=== PATIENT | male | born 1985 | race African-American/Black ===

== ENCOUNTER 2021-07-15 06:59 | Observation (INO) ==
--- NOTE | 2021-07-15 07:17 | Emergency Department Note ---
History of Present Illness General Chief complaint: Dental/Oral Stated complaint: TOOTH PAIN Time Seen by Provider: 07/15/21 07:05 History of Present Illness Maximum Pain Intensity: 8 This is a 35-year-old male that presents to the emergency department via private vehicle with complaints of "dental pain". Patient notes pain to the right side of his face. He notes the pain is originating from the molars of the right posterior superior and inferior dentition. 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 No known trauma or injury recently. The patient states that he was here a little over a month ago and received antibiotics and pain medication. He is now out of these. He has been utilizing [id number] pain medication. Specifically he arrives with bottles of acetaminophen and indicates that he has been taking between 12 and 13 tablets every day for the past 2 weeks. These appear to be the extra strength 500 mg tablets. He also notes he is taking a nighttime medication but this also contains acetaminophen. That is included in the count listed above. The patient denies any nausea or vomiting. No abdominal pain. Patient states that he has attempted to follow-up with dentistry however his appointment continues to be moved. He notes that he has an appointment on the of this month with [facility]. He states that he is here today noting worsening discomfort. He states that he was crying this morning secondary to the pain. Current pain 8/10. Patient denies any drainage from the teeth or trouble breathing/swa llowing. He denies any facial swelling. He does note now that on the superior posterior gumline on the medial aspect of the molar he notes a "black speck". Home Medications Medication Instructions Recorded Confirmed Type No Known Home Medications 07/15/21 07/15/21 History Allergies Allergy/AdvReac Type Severity Reaction Status Date / Time No Known Allergies Allergy Unverified 07/15/21 07:46 Past Med/Surg History Medical History No significant past medical history Surgical History No significant past surgical history Social History Smoking Status: Never smoker Preferred Language: Qatari marital status: Single current occupational status: employed Feels Safe at Home: Yes Review of Systems A total of 10 systems reviewed and were otherwise negative Physical Exam Vital Signs Vital Signs - 24 hr 07/15/21 07:02 07/15/21 08:10 07/15/21 09:17 Temperature 36.9 C Temperature Source Temporal Artery Scan Pulse Rate 68 Pulse Rate [Right Finger] 52 L 46 L Pulse Rhythm [Right Finger] Regular Regular Pulse Strength [Right Finger] Normal Normal Respiratory Rate 18 19 16 Respiratory Effort / Characteristics Non-Labored Respiratory Depth Normal Normal Respiratory Pattern Regular Blood Pressure 157/97 H Blood Pressure [Right Arm] 155/79 H 120/88 Blood Pressure Mean 117 Blood Pressure Mean [Right Arm] 104 98 Blood Pressure Position [Right Arm] Lying Lying Pulse Oximetry 99 97 98 Oxygen Delivery Method Room Air Room Air Room Air Sepsis Recent Fever Within 48 Hours No Sepsis New/Unexplained Change in Mental Status No Sepsis Action Taken by Nursing No Action Required 07/15/21 11:00 07/15/21 12:06 Temperature Temperature Source Pulse Rate Pulse Rate [Right Finger] 47 L 54 L Pulse Rhythm [Right Finger] Regular Pulse Strength [Right Finger] Normal Respiratory Rate 21 20 Respiratory Effort / Characteristics Respiratory Depth Respiratory Pattern Blood Pressure Blood Pressure [Right Arm] 150/106 H Blood Pressure Mean Blood Pressure Mean [Right Arm] 120 Blood Pressure Position [Right Arm] Lying Pulse Oximetry 98 97 Oxygen Delivery Method Room Air Room Air Sepsis Recent Fever Within 48 Hours Sepsis New/Unexplained Change in Mental Status Sepsis Action Taken by Nursing VITAL SIGNS - Vital signs and nursing notes were reviewed. Stable and afebrile. GENERAL -35-year-old male appearing his stated age who is in no acute distress. Communicates well with provider and answers questions appropriately. SKIN - Without rashes. No meningeal or petechial rash. No facial edema or e rythema. HEAD - NC/AT. EYES - Sclera anicteric. EARS - No deformities of external structures noted on gross examination bilaterally. No pain elicited with palpation of the tragus bilaterally. External auditory canals without discharge or otorrhea. Tympanic membranes pearly salcedo without retraction or bulging. No fluid or purulent material visualized behind the TM. Handle of malleus, umbo, cone of light, pars tensa/flaccid all easily visualized. NOSE - Midline and without cyanosis. No epistaxis or purulent drainage noted. Septum midline without deviation or septal hematoma noted. MOUTH/OROPHARYNX - Without perioral cyanosis. Buccal mucosa pink and moist and without leukoplakia. Tongue midline with equal elevation of palate bilaterally. No tonsillar hypertrophy, erythema, or exudates noted. Patient's right posterior and superior molar region with overall poor repair with several partial teeth with evidence of chronic change. No facial edema. No crepitus. No fluctuance. No evidence of Taye's angina. No drooling, stridor, trismus, wheezing or tripoding. Normal phonation. NECK - Neck with FROM. No nuchal rigidity. LUNGS - Chest wall symmetric without accessory muscle use, intercostals retractions, or central cyanosis. Normal vesicular breath sounds CTA B/L. No wheezes, rales, or rhonchi appreciated. CARDIAC - RRR with S1/S2. No murmur, rubs, or gallops appreciated. ABDOMEN - Abdominal contour normal without pulsations or visible masses. BS normoactive all four quadrants. No tenderness, palpable masses, hepatosplenomegaly, or ascites noted. EXTREMITIES - No clubbing or peripheral cyanosis. +5/5 strength noted in UE/LE bilaterally. NEUROLOGIC - Cranial nerves II through XII grossly intact. Sensory intact to light touch throughout. PSYCH - A&Ox3 and cooperates fully with examiner. Pt is very pleasant and interacts well with examiner. Course Administered Medications Chlorhexidine Gluconate (Chlorhexidine Gluconate 0.12% 480 Ml) 15 ml MT Q6 JEREMY Stop: 08/14/21 17:59 Last Admin: 07/15/21 17:57 Dose: 15 ml Documented by: [id number] Metronidazole (Flagyl) 500 mg in 100 mls @ 100 mls/hr IV Q8H JEREMY Stop: 07/25/21 12:59 Last Infusion: 07/15/21 15:49 Dose: 0 mls/hr Documented by: [id number] Admin: 07/15/21 14:17 Dose: 100 mls/hr Documented by: [id number] Clindamycin Phosphate (Cleocin/D5w) 600 mg in 50 mls @ 100 mls/hr IV Q8H JEREMY Stop: 07/25/21 17:59 Last Infusion: 07/15/21 18:36 Dose: 0 mls/hr Documented by: [id number] Admin: 07/15/21 17:53 Dose: 100 mls/hr Documented by: [id number] Ketorolac Tromethamine (Ketorolac Tromethamine 15 Mg/Ml Vial) 15 mg IV Q6H PRN PRN Reason: Pain Stop: 07/20/21 14:53 Last Admin: 07/15/21 15:49 Dose: 15 mg Documented by: [id number] Discontinued Medications Clindamycin Phosphate (Cleocin/D5w) 600 mg in 50 mls @ 100 mls/hr IV NOW ONE Stop: 07/15/21 10:38 Last Infusion: 07/15/21 14:42 Dose: 0 mls/hr Documented by: [id number] Admin: 07/15/21 10:26 Dose: 100 mls/hr Documented by: [id number] Acetylcysteine 14,030 mg/ (Dextrose) 270.15 mls @ 200 mls/hr IV ONCE ONE Stop: 07/15/21 14:28 Last Infusion: 07/15/21 17:03 Dose: 0 mls/hr Documented by: [id number] Admin: 07/15/21 15:37 Dose: 200 mls/hr Documented by: [id number] Acetylcysteine 4,680 mg/ (Dextrose) 523.4 mls @ 125 mls/hr IV ONCE ONE Stop: 07/15/21 18:21 Last Admin: 07/15/21 17:02 Dose: 125 mls/hr Documented by: [id number] Ioversol (Optiray 320 100ml) 95 ml IV ONCE ONE Stop: 07/15/21 09:11 Last Admin: 07/15/21 08:58 Dose: 95 ml Documented by: [id number] Morphine Sulfate (Morphine Sulfate 4 Mg/Ml 1 Ml Carp\\Vial) 4 mg IV NOW STA Stop: 07/15/21 07:59 Last Admin: 07/15/21 08:09 Dose: 4 mg Documented by: [id number] Morphine Sulfate (Morphine Sulfate 4 Mg/Ml 1 Ml Carp\\Vial) 4 mg IV NOW STA Stop: 07/15/21 08:28 Last Admin: 07/15/21 08:55 Dose: 4 mg Documented by: [id number] Morphine Sulfate (Morphine Sulfate 4 Mg/Ml 1 Ml Carp\\Vial) 4 mg IV NOW STA Stop: 07/15/21 11:16 Last Admin: 07/15/21 11:28 Dose: 4 mg Documented by: [id number] Morphine Sulfate (Morphine Sulfate 2 Mg/Ml Carp) 2 mg IV NOW STA Stop: 07/15/21 14:36 Last Admin: 07/15/21 14:42 Dose: 2 mg Documented by: [id number] Ondansetron HCl (Ondansetron Inj 2 Mg/Ml 2 Ml Vial) 4 mg IV NOW STA Stop: 07/15/21 07:59 Last Admin: 07/15/21 08:09 Dose: 4 mg Documented by: [id number] Ondansetron HCl (Ondansetron Inj 2 Mg/Ml 2 Ml Vial) 4 mg IV NOW STA Stop: 07/15/21 09:09 Last Admin: 07/15/21 09:14 Dose: 4 mg Documented by: [id number] Medical Decision Making Laboratory Data Result diagrams: 07/15/21 07:25 07/15/21 07:25 Lab Results 07/15/21 07/15/21 07/15/21 Range/Units 07:25 07:25 07:25 WBC 6.19 (4.8-10.8) K/uL RBC 4.77 (4.7-6.1) M/uL Hgb 13.6 L (14.0-18.0) g/dL Hct 41.0 L (42-52) % MCV 86.0 (80-100) fL MCH 28.5 (25-34) pg MCHC 33.2 (32-36) g/dL RDW Std Deviation 48.5 H (36.4-46.3) fL RDW Coeff of Kandace 15.4 H (11.5-14.5) % Plt Count 281 (130-400) K/uL MPV 10.0 (7.4-10.4) fL Immature Gran % (Auto) 0.2 % Neut % (Auto) 51.4 % Lymph % (Auto) 39.3 % [place] % (Auto) 7.9 % Eos % (Auto) 1.0 % Baso % (Auto) 0.2 % Neut # (Auto) 3.19 (1.4-6.5) K/uL Lymph # (Auto) 2.43 (1.2-3.4) K/uL [place] # (Auto) 0.49 (0.11-0.59) K/uL Eos # (Auto) 0.06 (0-0.5) K/uL Baso # (Auto) 0.01 (0-0.2) K/uL Immature Gran # (Auto) 0.01 (0.00-0.02) K/uL PT 13.5 H (9.0-12.0) Seconds INR 1.3 H (0.9-1.1) APTT 27.1 (21.0-31.0) Seconds PTT Ratio 1.0 Sodium 139 (136-145) mmol/L Potassium 3.8 (3.5-5.1) mmol/L Chloride 106 (98-107) mmol/L Carbon Dioxide 24 (21-32) mmol/L Anion Gap 9 (3-11) BUN 14 (6-23) mg/dl Creatinine 0.92 (0.6-1.4) mg/dl Est Cr Clr Drug Dosing 131.8 ml/min Est GFR ( Amer) 123.6 ml/min Est GFR (Non-Af Amer) 106.6 ml/min BUN/Creatinine Ratio 15.2 (10-20) Glucose 87 (70-99(Fasting)) mg/dl Calcium 10.1 (8.5-10.1) mg/dl Total Bilirubin 0.6 (0.2-1.0) mg/dl AST 25 (13-39) U/L ALT 25 (7-52) U/L Alkaline Phosphatase 66 (34-104) U/L Total Protein 7.7 (6.0-8.3) gm/dl Albumin 4.8 (3.4-5.0) gm/dl Globulin 2.9 (2.5-4.0) gm/dl Albumin/Globulin Ratio 1.7 (0.9-2) Salicylates (3.0-30) mg/dl Acetaminophen (10-30) ug/ml SARS-CoV-2, RNA, NAAT (NEGATIVE) 07/15/21 07/15/21 Range/Units 07:25 11:33 WBC (4.8-10.8) K/uL RBC (4.7-6.1) M/uL Hgb (14.0-18.0) g/dL Hct (42-52) % MCV (80-100) fL MCH (25-34) pg MCHC (32-36) g/dL RDW Std Deviation (36.4-46.3) fL RDW Coeff of Kandace (11.5-14.5) % Plt Count (130-400) K/uL MPV (7.4-10.4) fL Immature Gran % (Auto) % Neut % (Auto) % Lymph % (Auto) % [place] % (Auto) % Eos % (Auto) % Baso % (Auto) % Neut # (Auto) (1.4-6.5) K/uL Lymph # (Auto) (1.2-3.4) K/uL [place] # (Auto) (0.11-0.59) K/uL Eos # (Auto) (0-0.5) K/uL Baso # (Auto) (0-0.2) K/uL Immature Gran # (Auto) (0.00-0.02) K/uL PT (9.0-12.0) Seconds INR (0.9-1.1) APTT (21.0-31.0) Seconds PTT Ratio Sodium (136-145) mmol/L Potassium (3.5-5.1) mmol/L Chloride (98-107) mmol/L Carbon Dioxide (21-32) mmol/L Anion Gap (3-11) BUN (6-23) mg/dl Creatinine (0.6-1.4) mg/dl Est Cr Clr Drug Dosing ml/min Est GFR ( Amer) ml/min Est GFR (Non-Af Amer) ml/min BUN/Creatinine Ratio (10-20) Glucose (70-99(Fasting)) mg/dl Calcium (8.5-10.1) mg/dl Total Bilirubin (0.2-1.0) mg/dl AST (13-39) U/L ALT (7-52) U/L Alkaline Phosphatase (34-104) U/L Total Protein (6.0-8.3) gm/dl Albumin (3.4-5.0) gm/dl Globulin (2.5-4.0) gm/dl Albumin/Globulin Ratio (0.9-2) Salicylates < 3.0 L (3.0-30) mg/dl Acetaminophen 16 (10-30) ug/ml SARS-CoV-2, RNA, NAAT NEGATIVE (NEGATIVE) Imaging Data Radiologist's Impression: Face CT 07/15/21 08:20 CT SCAN OF THE FACIAL BONES WITH IV CONTRAST CLINICAL HISTORY: Right-sided facial/dental pain. COMPARISON STUDY: No priors. TECHNIQUE: High-resolution CT scan of the facial bones is performed following the IV administration of 95 cc of Optiray 320. Images are reviewed in the axial, sagittal, and coronal planes. IV contrast was administered without complication. A dose lowering technique was utilized adhering to the principles of ALARA. CT DOSE: 660.10 mGy.cm FINDINGS: The skeletal structures are well mineralized. There is no evidence of facial bone fracture. The bony orbits are intact and the orbital contents are within normal limits. The zygomatic arches, nasal bones, and pterygoid plates are preserved. The maxilla and mandible are intact. There are no layering blood products within the paranasal sinuses. There is trace mucosal thickening within the right maxillary antrum. The remaining paranasal sinuses are clear. The mastoid air cells are well pneumatized. The visualized calvarium and upper cerv ical spine are maintained. Partially imaged brain parenchyma is within normal limits. There are numerous dental caries identified. There are large periapical lucencies involving left mandibular molars and premolars with overlying cortical breakthrough. A small periapical lucencies are also seen involving right maxillary molars and a right mandibular premolar. No abscess is identified. There are nonspecific foci of deep soft tissue gas within the right inspector aluminum boat and parapharyngeal spaces (employer relations representative foci are seen on axial images #245 and #305). There is mild surrounding inflammation. The pharyngeal airway is patent. The carotid arteries and jugular veins are patent. There is slightly asymmetric dermal thickening and infiltration in the left upper neck as compared the right. IMPRESSION: 1. There is no evidence of facial bone fracture. 2. Periodontal disease as above with numerous dental caries and periapical lucencies. Follow-up with dentistry is recommended. 3. No fluid collection is seen to suggest abscess. 4. There are nonspecific foci of deep soft tissue gas within the right inspector aluminum boat and parapharyngeal spaces. There is nonspecific, with only mild inflammation. Although atypical, this could represent foci of intravenous gas. A gas-forming infection is not excluded and clinical correlation will be essential. 5. The airway is patent. 6. There is asymmetric dermal thickening and mild soft tissue induration within the soft tissues of the ventral left upper neck. Correlate clinically for e vidence of cellulitis. ACT 112: Negative or not required by law. Electronically signed by: Mathew Escoto M.D. 07/15/2021 9:26 AM MDM Narrative Patient was seen and evaluated as above in room B10. Review was performed of nursing notes and vital signs. I did review pertinent previous visits and patient history. After obtaining a thorough history and physical examination the above work up was performed. Patient presents to us today for evaluation of right-sided dental pain. He clinically appears well and nontoxic. On initial arrival he respectfully declined pain medication. He does note that he has been taking acetaminophen for the pain. It appears that he has been taking more than the recommended daily dosage but he was unaware of this. Options of care were discussed with the patient. IV access was established. Labs were drawn. Given the patient's potential for taking too much acetaminophen by history I did feel that blood work was reasonable. The initially declined pain medication. I was then notified by the nurse that the patient was in severe pain. I went to evaluate him. He was essentially laying back in the bed rolling [id number] noting he was in severe pain. I then ordered him IV morphine, IV Zofran pending work-up here today. Patient has required several doses of IV morphine here in the emergency department to manage his pain. He also had additional nausea and was given additional IV Zofran. CT imaging was obtained of the face with results as above. Patient does have periductal disease which clinically does correlate. There is no fluid collection to suggest abscess. There is comment of nonspecific foci of deep soft tissue gas within the right inspector aluminum boat and parapharyngeal spaces. Only mild inflammation is noted. CT report indicates that it would be atypical but could represent foci of intravenous gas. A gas-forming infection is not excluded. The patient does not clinically appear toxic. He clinically appears well but in pain. I will also note that the left side of the neck does not appear to be cellulitic clinically. I did discuss the presentation and findings with the on- call oral maxillofacial surgeon, Dr. Trevizo. We reviewed the case. At this time we will proceed with hospitalist admission for intravenous antibiotics and repeat CT scan of the area in 24 hours to reevaluate the foci of intravenous gas. If the patient would clinically worsen or if this region would worsen by CT then the patient would likely require transfer to tertiary care center. I will note that at the present time the patient does not appear toxic at all. He does appear to be in pain from the teeth. I discussed options with the patient. I discussed this with the hospitalist. At this time we will proceed with medical admission to the hospital for further evaluation and management. Patient did receive IV clindamycin here. Please refer to further documentation regarding his stay. In addition to his work-up here I did further evaluate for potential acetaminophen overdose. This was secondary to the patient's subjective amounts of acetaminophen he has been ingesting over the past 2 weeks. Labs reveal no leukocytosis. Minor anemia. Minor elevation of INR 1.3. LFTs are normal. Acetaminophen level 16. Salicylate undetectable. COVID testing negative. GCS: 15 In the evaluation and treatment of this patient, the following differential diagnoses were considered: Periapical Abscess, Osteonecrosis of the Jaw, Dental Fracture, Dental Caries, Atye's Angina, Vincent's Angina, Facial Cellulitis, Ludwigs angina, Lemierre's syndrome, among others Impression & Plan Dental caries, Odontalgia, Abnormal CT scan Discharge Plan Visit Data Chief Complaint: Dental/Oral Stated Complaint: TOOTH PAIN ED Provider: Uriah Prescott ED Midlevel Provider: Perez Jolly Discharge Problem: Dental caries, Odontalgia, Abnormal CT scan Patient Disposition: Admitted As Inpatient Condition: Good Discharge Instructions Interventions: ED Discharge Assessment Last Done: 07/15/21 15:56
[2021-07-15 07:53] LABS: Acetaminophen 16 ug/ml (10-30); INR 1.3 (0.9-1.1); Partial Thromboplastin Time 27.1 Seconds (21.0-31.0); Prothrombin Time 13.5 Seconds (9.0-12.0); Salicylate < 3.0 mg/dl (3.0-30)
[2021-07-15 07:54] LABS: Albumin Globulin Ratio 1.7 (0.9-2); Albumin Level 4.8 gm/dl (3.4-5.0); BUN Creatinine Ratio 15.2 (10-20); Bilirubin,Total 0.6 mg/dl (0.2-1.0); Calcium 10.1 mg/dl (8.5-10.1); Creatinine Clr Calc Pharmacy 131.8 ml/min; Est GFR (African American) 123.6 ml/min; Est GFR (Non-African American) 106.6 ml/min; Globulin 2.9 gm/dl (2.5-4.0); Potassium 3.8 mmol/L (3.5-5.1); Total Protein 7.7 gm/dl (6.0-8.3)
[2021-07-15] MEDS ORDERED: ONDANSETRON INJ 2 MG/ML 2 ML VIAL IV STA ×2 (07:58→09:08)
[2021-07-15] MEDS ORDERED: MoRPHine SULFATE 4 MG/ML 1 ML CARP\\VIAL IV STA ×3 (07:58→11:15)
[2021-07-15 07:59] LABS: Basophils # (auto) 0.01 K/uL (0-0.2); Basophils % (auto) 0.2 %; Eosinophils # (auto) 0.06 K/uL (0-0.5); Hemoglobin 13.6 g/dL (14.0-18.0); Immature Granulocytes # (auto) 0.01 K/uL (0.00-0.02); Immature Granulocytes % (auto) 0.2 %; Lymphocytes # (auto) 2.43 K/uL (1.2-3.4); Lymphocytes % (auto) 39.3 %; Mean Corpuscular Hemoglobin 28.5 pg (25-34); Mean Corpuscular Hgb Conc 33.2 g/dL (32-36); Monocytes # (auto) 0.49 K/uL (0.11-0.59); Monocytes % (auto) 7.9 %; Neutrophils # (auto) 3.19 K/uL (1.4-6.5); Neutrophils % (auto) 51.4 %; Platelet Count 281 K/uL (130-400); RDW Coefficient of Variation 15.4 % (11.5-14.5); RDW Standard Deviation 48.5 fL (36.4-46.3); Red Blood Count 4.77 M/uL (4.7-6.1); White Blood Count 6.19 K/uL (4.8-10.8)
[2021-07-15] MEDS ORDERED: OPTIRAY 320 100ml IV ONE (09:10)
--- NOTE | 2021-07-15 09:27 | CT Scan Report ---
CT SCAN OF THE FACIAL BONES WITH IV CONTRAST CLINICAL HISTORY: Right-sided facial/dental pain. COMPARISON STUDY: No priors. TECHNIQUE: High-resolution CT scan of the facial bones is performed following the IV administration of 95 cc of Optiray 320. Images are reviewed in the axial, sagittal, and coronal planes. IV contrast was administered without complication. A dose lowering technique was utilized adhering to the princi ples of JERRI. CT DOSE: 660.10 mGy.cm FINDINGS: The skeletal structures are well mineralized. There is no evidence of facial bone fracture. The bony orbits are intact and the orbital contents are within normal limits. The zygomatic arches, nasal bones, and pterygoid plates are preserved. The maxilla and mandible are intact. There are no la yering blood products within the paranasal sinuses. There is trace mucosal thickening within the righ t maxillary antrum. The remaining paranasal sinuses are clear. The mastoid air cells are well pneumat ized. The visualized calvarium and upper cervical spine are maintained. Partially imaged brain parenc hyma is within normal limits. There are numerous dental caries identified. There are large periapical lucencies involving left mandibular molars and premolars with overlying cortical breakthrough. A sma ll periapical lucencies are also seen involving right maxillary molars and a right mandibular premola r. No abscess is identified. There are nonspecific foci of deep soft tissue gas within the right mast icator and parapharyngeal spaces (rental representative foci are seen on axial images #245 and #305). There is mild surrounding inflammation. The pharyngeal airway is patent. The carotid arteries and jugular v eins are patent. There is slightly asymmetric dermal thickening and infiltration in the left upper ne ck as compared the right. IMPRESSION: 1. There is no evidence of facial bone fracture. 2. Periodontal disease as above with numerous dental caries and periapical lucencies. Follow-up with dentistry is recommended. 3. No fluid collection is seen to suggest abscess. 4. There are nonspecific foci of deep soft tissue gas within the right mainframe programmer analyst and parapharyngeal spaces. There is nonspecific, with only mild inflammation. Although atypical, this could represent fo ci of intravenous gas. A gas-forming infection is not excluded and clinical correlation will be essen tial. 5. The airway is patent. 6. There is asymmetric dermal thickening and mild soft tissue induration within the soft tissues of t he ventral left upper neck. Correlate clinically for evidence of cellulitis. ACT 112: Negative or not required by law. Electronically signed by: Mathew Escoto M.D. 07/15/2021 9:26 AM
[2021-07-15] MEDS ORDERED: CLINDAMYCIN/D5W 600 MG/50 ML BAG IV ONE (10:09)
[2021-07-15] MEDS ORDERED: ACETYLCYSTEINE IV ONE ×3 (13:07→18:10)
[2021-07-15] MEDS ORDERED: DEXTROSE 5% IV ONE ×3 (13:07→18:10)
[2021-07-15] MEDS ORDERED: AcetylCYSTEINE IV 21 HR REGIMEN (>40KG) IV STA (13:07)
--- NOTE | 2021-07-15 13:10 | History & Physical Report ---
Date of Service July 15, 2021 Assessment & Plan (1) Periodontal disease: Plan: As above- will provider Peridex mouth rinse q6 hours at least - pain control with Toradol, Oxy IR, and Morphine for severe pain if needed - Re- image in the morning- evaluate GAS formation vs. Intravenous air - ABX coverage with Clindamycin IV and Flagyl IV - no current evidence of sepsis or airways compromise- (2) Odontalgia: Plan: As above (3) Abnormal CT scan: Plan: As above There are nonspecific foci of deep soft tissue gas within the right fashion design professor and parapharyngeal spaces. There is nonspecific, with only mild inflammation. Although atypical, this could represent foci of intravenous gas. A gas-forming infection is not excluded and clinical correlation will be essential. Periodontal disease as above with numerous dental caries and periapical lucencies. Follow-up with dentistry is recommended. Dr. Parker consulted- appreciate assistance (4) Tylenol overdose: Plan: His consumption and amount are at his weight max - EMD provider consulted poison control- recommends NAC therapy - follow- recheck INR ~ 16 hours from now - INR in am LFTs in AM History of Present Illness Primary Care Provider: JILL PCP 35 YOM with no reported medical history: patient comes to the EMD today for continued complaints of right sided facial pain secondary reported right sided tooth pain. Patient appears to have been dealing with left sided fractured tooth back in May, and reports that for the last 3 weeks his right upper and lower back teeth have been hurting him, resulting in pain that goes up to his buddhism and then downtrends to the bottom of his jaw. He reports that this pain is causing him to miss work because it continues to throb. He reports taking be tween 12-13 tablets of Tylenol every day without relief. He did have Tylenol level sent and was\ (16) and his LFTs are normal- but with INR of 1.3. Poison control was consulted for his dose amount and level by the EMD. Recommendation was for NAC therapy- will be initiated. In the EMD the patient had CT scan of his face completed. This revealed peridental disease as well as a foci of deep soft tissue gas within the right fashion design professor and parapharyngeal spaces. There is nonspecific, with only mild inflammation. Although atypical, this could represent foci of intravenous gas. A gas-forming infection is not excluded and clinical correlation will be essential. OMFS was consulted by EMD and reviewed the imaging- current recommendation is observation overnight with antibiotic coverage and re-image in the morning for evaluation of GAS. Patient was given Clindamycin in the EMD. Patient will be observed overnight. Will add on Flagyl for anaerobic coverage with the above. If no change in the above GAS- patient will be seen by Dr. Parker in the office for removal of his teeth. Do have surgical coverage if needed while in house. COVID test on admission is: NEGATIVE Allergies Allergy/AdvReac Type Severity Reaction Status Date / Time No Known Allergies Allergy Unverified 07/15/21 07:46 Home Medications Medication Instructions Recorded Confirmed Type chlorhexidine gluconate 0.12 % 15 ml MT Q6 #118 ml 07/16/21 Rx mouthwash Past Med/Surg History Medical History No significant past medical history Surgical History No significant past surgical history Social History Smoking Status: Never smoker Preferred Language: Malagasy marital status: Single current occupational status: employed Feels Safe at Home: Yes Review of Systems Review of Systems: REVIEW OF SYSTEMS: Constitutional: No fever, sweats or chills Eyes: No diplopia, no worsening or blurred vision ENT: (+) tooth and face pain Respiratory: No cough, sputum, dyspnea at rest or on exertion Cardiovascular: No chest pain, tightness or palpitations Abdomen: No pain, nausea, vomiting, diarrhea or constipation Musculoskeletal: No joint pain, calf pain, swelling Neurologic: No weakness, numbness/tingling, or balance problems Psychiatric: No anxiety or depression Skin: No rash or itch Physical Exam Physical Exam: PHYSICAL EXAM: General: awake, alert, no apparent distress Head: Normocephalic, atraumatic ENT: PERRL, EOMI, no pharyngeal exudate, mucous membranes moist- bilateral fractured and missing teeth at back molars, right upper #2-3 erythema and black spotting, left lower ~#19 with also pain at the jaw-line, right lower ~30 normal hearing, no trouble swallowing and no airway compromise. Tenderness to palpation right lower jaw and submandibular, no sinus pain and no pain along the TMJ. Left lower jaw pain with palpation Neuro: AAO x 3, speech clear and appropriate, strength intact bilaterally 5/5, sensation intact and equal all extremities and dermatomes, no pronator drift Chest: equal rise and fall of the chest, no accessory muscle use, no heaves or thrills, Clear to auscultation, on room air, Cardiac: Regular rate and rhythm, telemetry reviewed, skin warm dry, cap refill <3 seconds, peripheral pulses +2 no JVD, no murmur, no JVD, no edema GI: NABS x 4 quadrants, soft, nontender to palpation, no rebound, guarding or tenderness : Spontaneously voiding, no pain, no CVA tenderness, Extremities: Normal inspection, no peripheral edema or erythema, calfs nontender to palpation Psych: Normal mood and affect Skin: no rash or erythema Results & Data Results & Data ([place]) Vital Signs (Past 12 Hours) Vital Signs Temp Pulse Pulse Resp BP BP Pulse Ox 07/15/21 11:00 47 L 21 150/106 H 98 07/15/21 09:17 46 L 16 120/88 98 07/15/21 08:10 52 L 19 155/79 H 97 07/15/21 07:02 36.9 C 68 18 157/97 H 99 Laboratory Results Abnormal lab results 07/15/21 07/15/21 07/15/21 Range/Units 07:25 07:25 07:25 Hgb 13.6 L (14.0-18.0) g/dL Hct 41.0 L (42-52) % RDW Std Deviation 48.5 H (36.4-46.3) fL RDW Coeff of Kandace 15.4 H (11.5-14.5) % PT 13.5 H (9.0-12.0) Seconds INR 1.3 H (0.9-1.1) Salicylates < 3.0 L (3.0-30) mg/dl Diagnostic Findings Face CT 07/15/21 08:20 CT SCAN OF THE FACIAL BONES WITH IV CONTRAST CLINICAL HISTORY: Right-sided facial/dental pain. COMPARISON STUDY: No priors. TECHNIQUE: High-resolution CT scan of the facial bones is performed following the IV administration of 95 cc of Optiray 320. Images are reviewed in the axial, sagittal, and coronal planes. IV contrast was administered without complication. A dose lowering technique was utilized adhering to the principles of ALARA. CT DOSE: 660.10 mGy.cm FINDINGS: The skeletal structures are well mineralized. There is no evidence of facial bone fracture. The bony orbits are intact and the orbital contents are within normal limits. The zygomatic arches, nasal bones, and pterygoid plates are preserved. The maxilla and mandible are intact. There are no layering blood products within the paranasal sinuses. There is trace mucosal thickening within the right maxillary antrum. The remaining paranasal sinuses are clear. The mastoid air cells are well pneumatized. The visualized calvarium and upper cervical spine are maintained. Partially imaged brain parenchyma is within normal limits. There are numerous dental caries identified. There are large periapical lucencies involving left mandibular molars and premolars with overlying cortical breakthrough. A small periapical lucencies are also seen involving right maxillary molars and a right mandibular premolar. No abscess is identified. There are nonspecific foci of deep soft tissue gas within the right fashion design professor and parapharyngeal spaces (key account representative foci are seen on axial images #245 and #305). There is mild surrounding inflammation. The pharyngeal airway is patent. The carotid arteries and jugular veins are patent. There is slightly asymmetric dermal thickening and infiltration in the left upper neck as compared the right. IMPRESSION: 1. There is no evidence of facial bone fracture. 2. Periodontal disease as above with numerous dental caries and periapical lucencies. Follow-up with dentistry is recommended. 3. No fluid collection is seen to suggest abscess. 4. There are nonspecific foci of deep soft tissue gas within the right fashion design professor and parapharyngeal spaces. There is nonspecific, with only mild inflammation. Although atypical, this could represent foci of intravenous gas. A gas-forming infection is not excluded and clinical correlation will be essential. 5. The airway is patent. 6. There is asymmetric dermal thickening and mild soft tissue induration within the soft tissues of the ventral left upper neck. Correlate clinically for evidence of cellulitis. ACT 112: Negative or not required by law. Electronically signed by: Mathew Escoto M.D. 07/15/2021 9:26 AM Medications Administered Home Medications No Known Home Medications 07/15/21 [History Confirmed 07/15/21] Active Medications Acetaminophen (Acetaminophen 325 Mg Tab) 650 mg PO Q8 JEREMY Stop: 08/14/21 13:59 Metronidazole (Flagyl) 500 mg in 100 mls @ 100 mls/hr IV Q8H JEREMY Stop: 07/25/21 12:59 Discontinued Medications Clindamycin Phosphate (Cleocin/D5w) 600 mg in 50 mls @ 100 mls/hr IV NOW ONE Stop: 07/15/21 10:38 Last Admin: 07/15/21 10:26 Dose: 100 mls/hr Documented by: [id number] Ioversol (Optiray 320 100ml) 95 ml IV ONCE ONE Stop: 07/15/21 09:11 Last Admin: 07/15/21 08:58 Dose: 95 ml Documented by: [id number] Morphine Sulfate (Morphine Sulfate 4 Mg/Ml 1 Ml Carp\Vial) 4 mg IV NOW STA Stop: 07/15/21 07:59 Last Admin: 07/15/21 08:09 Dose: 4 mg Documented by: [id number] Morphine Sulfate (Morphine Sulfate 4 Mg/Ml 1 Ml Carp\Vial) 4 mg IV NOW STA Stop: 07/15/21 08:28 Last Admin: 07/15/21 08:55 Dose: 4 mg Documented by: [id number] Morphine Sulfate (Morphine Sulfate 4 Mg/Ml 1 Ml Carp\Vial) 4 mg IV NOW STA Stop: 07/15/21 11:16 Last Admin: 07/15/21 11:28 Dose: 4 mg Documented by: [id number] Ondansetron HCl (Ondansetron Inj 2 Mg/Ml 2 Ml Vial) 4 mg IV NOW STA Stop: 07/15/21 07:59 Last Admin: 07/15/21 08:09 Dose: 4 mg Documented by: [id number] Ondansetron HCl (Ondansetron Inj 2 Mg/Ml 2 Ml Vial) 4 mg IV NOW STA Stop: 07/15/21 09:09 Last Admin: 07/15/21 09:14 Dose: 4 mg Documented by: [id number] ECG Additional Comments: EKG: Pending on admission Code Status & VTE Plan Code Status CODE: FULL VTE: SCDS, ambulation Supervising Physician Co-Signing Physician Notes Patient seen and examined at bedside. Obtained a physical examination and history during face to face encounter. I discussed plan of care with PANCHO Glass I reviewed above note and agree with it. Patient will be admitted with periodontal disease. Patient will be admitted on antibiotics, re-eval in AM. Consult ENT. PG Care Time/CCT Total # of Minutes Spent Total Time Spent with Patient: Total time spent is greater than 50% in coordination of care (as documented) at patient's floor/unit and/or counseling patient: Coding Level of Care Code INT OBSERVATION CARE 70M LVL 3 Diagnoses Periodontal disease K05.[address] scan R93.89 Tylenol overdose T39.1X1A
[2021-07-15] MEDS ORDERED: ACETAMINOPHEN 325 MG TAB PO SCH (14:00)
[2021-07-15] MEDS: metroNIDAZOLE 500 MG/100 ML BAG IV SCH ×2 (14:17→20:26)
[2021-07-15] MEDS ORDERED: MoRPHine SULFATE 2 MG/ML CARP IV STA (14:35)
[2021-07-15] MEDS ORDERED: oxyCODONE HCL IR 5 MG TAB (IMMEDIATE RELEASE) PO PRN (14:54)
[2021-07-15] MEDS ORDERED: MoRPHine SULFATE 2 MG/ML CARP IV PRN (14:54)
[2021-07-15] MEDS: KETOROLAC TROMETHAMINE 15 MG/ML VIAL IV PRN ×2 (15:49→21:43)
[2021-07-15] MEDS: CLINDAMYCIN/D5W 600 MG/50 ML BAG IV SCH (17:53)
[2021-07-15] MEDS: CHLORHEXIDINE GLUCONATE 0.12% 480 ML MT SCH (17:57)
[2021-07-16] MEDS: CHLORHEXIDINE GLUCONATE 0.12% 480 ML MT SCH ×3 (01:01→12:57)
[2021-07-16] MEDS: CLINDAMYCIN/D5W 600 MG/50 ML BAG IV SCH ×2 (01:01→09:30)
[2021-07-16] MEDS: KETOROLAC TROMETHAMINE 15 MG/ML VIAL IV PRN ×2 (03:46→10:05)
[2021-07-16] MEDS ORDERED: OPTIRAY 320 100ml IV ONE (06:02)
[2021-07-16] MEDS: metroNIDAZOLE 500 MG/100 ML BAG IV SCH ×2 (06:07→12:57)
--- NOTE | 2021-07-16 07:45 | Hospitalist Progress Note ---
Date of Service July 16, 2021 Assessment & Plan (1) Periodontal disease: Plan: Admitted with RIGHT sided facial pain, multiple dental caries. Recent cracked tooth on the left in May CT on admission with peridentaldisease as well as a foci of deep soft tissue gas within the right plastic roller and parapharyngeal spaces. There is nonspecific, with only mild inflammation. Although atypical, this could represent foci of intravenous gas. A gas-forming infection is not excluded and clinical correlation will be essential. 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 There is nonspecific, with only mild inflammation. Although atypical, this could represent foci of intravenous gas. A gas-forming infection is not excluded and clinical correlation will be essential. Periodontal disease as above with numerous dental caries and periapical lucencies. Follow-up with dentistry is recommended. Dr. Parker consulted- appreciate assistance (4) Tylenol overdose: Plan: His consumption and amount are at his weight max - EMD provider consulted poison control- recommends NAC therapy - follow- recheck INR ~ 16 hours from now - INR in am LFTs in AM Admission and Anticipated Discharge Date Admission Date: July 15, 2021 Subjective ongoing pain x 2 weeks (works overnight at [employer]), worse bottom R jaw, occassional pain top R. Prior issues L jaw/cracked teeth but does have multiple cracked teeth in all four areas. Non smoker/no chewing tobacco. Using tylenol at home, no ibuprofen. Discussed alternating in future/max tylenol. Morphine not as effective as toradol. Will order 1x diladid but cannot increase the toradol for now. Waiting call back from Dr Trevizo as gas resolved on repeat office. Patient has been sticking to soups/liquids due to pain w/ chewing. He is hungry. Discussed keeping NPO for now until we get word from Dr Trevizo. He would prefer we do while he is here but did discuss dental usually outpatient but will see if Dr Trevizo able to perform. Results & Data Results & Data ([facility]) Vital Signs (Past 12 Hours) Vital Signs Temp Pulse Resp BP Pulse Ox 07/16/21 07:31 37.1 C 50 L 16 150/75 H 99 07/15/21 23:03 36.8 C 62 18 128/[address] 07/15/21 08:20 CT SCAN OF THE FACIAL BONES WITH IV CONTRAST CLINICAL HISTORY: Right-sided facial/dental pain. COMPARISON STUDY: No priors. TECHNIQUE: High-resolution CT scan of the facial bones is performed following the IV administration of 95 cc of Optiray 320. Images are reviewed in the axial, sagittal, and coronal planes. IV contrast was administered without complication. A dose lowering technique was utilized adhering to the principles of ALARA. CT DOSE: 660.10 mGy.cm FINDINGS: The skeletal structures are well mineralized. There is no evidence of facial bone fracture. The bony orbits are intact and the orbital contents are within normal limits. The zygomatic arches, nasal bones, and pterygoid plates are preserved. The maxilla and mandible are intact. There are no layering blood products within the paranasal sinuses. There is trace mucosal thickening within the right maxillary antrum. The remaining paranasal sinuses are clear. The mastoid air cells are well pneumatized. The visualized calvarium and upper cervical spine are maintained. Partially imaged brain parenchyma is within normal limits. There are numerous dental caries identified. There are large periapical lucencies involving left mandibular molars and premolars with overlying cortical breakthrough. A small periapical lucencies are also seen involving right maxillary molars and a right mandibular premolar. No abscess is identified. There are nonspecific foci of deep soft tissue gas within the right plastic roller and parapharyngeal spaces (guest service representative foci are seen on axial images #245 and #305). There is mild surrounding inflammation. The pharyngeal airway is patent. The carotid arteries and jugular veins are patent. There is slightly asymmetric dermal thickening and infiltration in the left upper neck as compared the right. IMPRESSION: 1. There is no evidence of facial bone fracture. 2. Periodontal disease as above with numerous dental caries and periapical lucencies. Follow-up with dentistry is recommended. 3. No fluid collection is seen to suggest abscess. 4. There are nonspecific foci of deep soft tissue gas within the right plastic roller and parapharyngeal spaces. There is nonspecific, with only mild inflammation. Although atypical, this could represent foci of intravenous gas. A gas-forming infection is not excluded and clinical correlation will be essential. 5. The airway is patent. 6. There is asymmetric dermal thickening and mild soft tissue induration within the soft tissues of the ventral left upper neck. Correlate clinically for evidence of cellulitis. ACT 112: Negative or not required by law. Electronically signed by: Mathew Escoto M.D. 07/15/2021 9:26 AM PG Care Time/CCT Total # of Minutes Spent Total Time Spent with Patient: Total time spent is greater than 50% in coordination of care (as documented) at patient's floor/unit and/or counseling patient: Coding Diagnoses Periodontal disease K05.[address] scan R93.89 Tylenol overdose T39.1X1A
--- NOTE | 2021-07-16 08:26 | CT Scan Report ---
CT facial bones w con HISTORY: Right-sided facial/dental pain. re-evaluation of deep soft tissue gas TECHNIQUE: Multiaxial CT images of the facial bones were performed following the intravenous administ ration of 94 cc of Optiray 320. Sagittal and coronal reformations were also obtained for COMPARISON STUDY: CT facial bones 07/15/2021. FINDINGS: The soft tissue gas seen within the deep right catering cook space has resolved in the interva l. Scattered periapical lucencies and multiple dental caries are again noted within the teeth. No fra ctures within the visualized osseous structures. Minimal mucosal thickening within the maxillary sinu ses. No fluid levels within the paranasal sinuses. The mastoid air cells are clear. No abscess or mas s identified. A few prominent submandibular and submental lymph nodes, unchanged. Dominant submental lymph node measures 12 x 8 mm. The pterygopalatine fossa and paratracheal fat spaces are maintained. The orbits and visualized brain parenchyma are unremarkable. IMPRESSION: 1. Interval resolution of the soft tissue gas within the right catering cook/pharyngeal spaces. 2. No abscess or mass identified. 3. Periodontal disease again noted. 4. A few prominent submental and submandibular lymph nodes. These may be reactive. ACT 112: Negative or not required by law. Electronically signed by: Ozzy Gordillo M.D. 07/16/2021 8:24 AM
[2021-07-16 09:40] LABS: Basophils # (auto) 0.02 K/uL (0-0.2); Basophils % (auto) 0.4 %; Eosinophils # (auto) 0.07 K/uL (0-0.5); Eosinophils % (auto) 1.6 %; Hematocrit (blood only) 39.2 % (42-52); Hemoglobin 13.2 g/dL (14.0-18.0); Immature Granulocytes # (auto) 0.01 K/uL (0.00-0.02); Immature Granulocytes % (auto) 0.2 %; Lymphocytes # (auto) 2.08 K/uL (1.2-3.4); Lymphocytes % (auto) 46.1 %; Mean Corpuscular Hemoglobin 28.1 pg (25-34); Mean Corpuscular Hgb Conc 33.7 g/dL (32-36); Mean Corpuscular Volume 83.6 fL (80-100); Mean Platelet Volume 9.8 fL (7.4-10.4); Monocytes # (auto) 0.34 K/uL (0.11-0.59); Monocytes % (auto) 7.5 %; Neutrophils # (auto) 1.99 K/uL (1.4-6.5); Neutrophils % (auto) 44.2 %; Platelet Count 244 K/uL (130-400); RDW Standard Deviation 46.1 fL (36.4-46.3); Red Blood Count 4.69 M/uL (4.7-6.1); White Blood Count 4.51 K/uL (4.8-10.8)
[2021-07-16 09:57] LABS: BUN Creatinine Ratio 12.5 (10-20); Calcium 9.3 mg/dl (8.5-10.1); Creatinine Clr Calc Pharmacy 168.4 ml/min; Est GFR (African American) 139.1 ml/min; Potassium 3.6 mmol/L (3.5-5.1)
[2021-07-16 09:59] LABS: Bilirubin Direct 0.1 mg/dl (0-0.2); Bilirubin,Total 0.7 mg/dl (0.2-1.0); Total Protein 6.6 gm/dl (6.0-8.3)
[2021-07-16 10:06] LABS: INR 1.1 (0.9-1.1); Prothrombin Time 12.1 Seconds (9.0-12.0)
[2021-07-16] MEDS ORDERED: HYDROmorphone INJ 0.5 MG/0.5 ML SYR IV STA (11:10)
[2021-07-16] MEDS ORDERED: SODIUM CHLORIDE 0.9% 500 ML IV SCH (11:15)
[2021-07-16] MEDS ORDERED: HYDROmorphone INJ 0.5 MG/0.5 ML SYR IV PRN (12:05)
--- NOTE | 2021-07-16 14:45 | Discharge Summary ---
Date of Service July 16, 2021 Admission HPI Per Admitting Provider 35 YOM with no reported medical history: patient comes to the EMD today for continued complaints of right sided facial pain secondary reported right sided tooth pain. Patient appears to have been dealing with left sided fractured tooth back in May, and reports that for the last 3 weeks his right upper and lower back teeth have been hurting him, resulting in pain that goes up to his yarsanism and then downtrends to the bottom of his jaw. He reports that this pain is causing him to miss work because it continues to throb. He reports taking between 12-13 tablets of Tylenol every day without relief. He did have Tylenol level sent and was\ (16) and his LFTs are normal- but with INR of 1.3. Poison control was consulted for his dose amount and level by the EMD. Recommendation was for NAC therapy- will be initiated. In the EMD the patient had CT scan of his face completed. This revealed peridental disease as well as a foci of deep soft tissue gas within the right ruling technician and parapharyngeal spaces. There is nonspecific, with only mild inflammation. Although atypical, this could represent foci of intravenous gas. A gas-forming infection is not excluded and clinical correlation will be essential. OMFS was consulted by EMD and reviewed the imaging- current recommendation is observation overnight with antibiotic coverage and re-image in the morning for evaluation of GAS. Patient was given Clindamycin in the EMD. Patient will be observed overnight. Will add on Flagyl for anaerobic coverage with the above. If no change in the above GAS- patient will be seen by Dr. Parker in the office for removal of his teeth. Do have surgical coverage if needed while in house. COVID test on admission is: NEGATIVE Admission Exam Per Admitting Provider PHYSICAL EXAM: General: awake, alert, no apparent distress Head: Normocephalic, atraumatic ENT: PERRL, EOMI, no pharyngeal exudate, mucous membranes moist- bilateral fractured and missing teeth at back molars, right upper #2-3 erythema and black spotting, left lower ~#19 with also pain at the jaw-line, right lower ~30 normal hearing, no trouble swallowing and no airway compromise. Tenderness to palpation right lower jaw and submandibular, no sinus pain and no pain along the TMJ. Left lower jaw pain with palpation Neuro: AAO x 3, speech clear and appropriate, strength intact bilaterally 5/5, sensation intact and equal all extremities and dermatomes, no pronator drift Chest: equal rise and fall of the chest, no accessory muscle use, no heaves or thrills, Clear to auscultation, on room air, Cardiac: Regular rate and rhythm, telemetry reviewed, skin warm dry, cap refill <3 seconds, peripheral pulses +2 no JVD, no murmur, no JVD, no edema GI: NABS x 4 quadrants, soft, nontender to palpation, no rebound, guarding or tenderness : Spontaneously voiding, no pain, no CVA tenderness, Extremities: Normal inspection, no peripheral edema or erythema, calfs nontender to palpation Psych: Normal mood and affect Skin: no rash or erythema Principal Diagnosis Dental Infection Discharge Exam General: WD/WN male sitting up in bed, NAD HEENT: head normocephalic, atraumatic, trachea midline without deviation, pupils equal and reactive multiple dental abnormalities -- bilateral fractured molars, upper and lower, tender to palpation primarily along right medial jaw no erythema of chest/lymphangitic streaking cervical lymphadenopathy Resp: CTAB, no w/c/r, on room air CV: RRR, no m/r/g, no edema/calf tenderness GI:+BS, soft, nontender no calix MSK/Neuro: moves all extremities, answering questions appropriately, no focal deficit Psych: AOx3, pleasant and cooperative Discharge Data Allergies Allergy/AdvReac Type Severity Reaction Status Date / Time No Known Allergies Allergy Unverified 07/15/21 07:46 Consultations 07/15/21 11:42 Consult Oromaxillofacial Surgery Routine 07/15/21 12:01 ED Decision to Admit Stat Ordered Studies Face CT 07/15/21 08:20 CT SCAN OF THE FACIAL BONES WITH IV CONTRAST CLINICAL HISTORY: Right-sided facial/dental pain. COMPARISON STUDY: No priors. TECHNIQUE: High-resolution CT scan of the facial bones is performed following the IV administration of 95 cc of Optiray 320. Images are reviewed in the axial, sagittal, and coronal planes. IV contrast was administered without complication. A dose lowering technique was utilized adhering to the principles of ALARA. CT DOSE: 660.10 mGy.cm FINDINGS: The skeletal structures are well mineralized. There is no evidence of facial bone fracture. The bony orbits are intact and the orbital contents are within normal limits. The zygomatic arches, nasal bones, and pterygoid plates are preserved. The maxilla and mandible are intact. There are no layering blood products within the paranasal sinuses. There is trace mucosal thickening within the right maxillary antrum. The remaining paranasal sinuses are clear. The mastoid air cells are well pneumatized. The visualized calvarium and upper cervical spine are maintained. Partially imaged brain parenchyma is within normal limits. There are numerous dental caries identified. There are large periapical lucencies involving left mandibular molars and premolars with overlying cortical breakthrough. A small periapical lucencies are also seen involving right maxillary molars and a right mandibular premolar. No abscess is identified. There are nonspecific foci of deep soft tissue gas within the right ruling technician and parapharyngeal spaces (sales representative foci are seen on axial images #245 and #305). There is mild surrounding inflammation. The pharyngeal airway is patent. The carotid arteries and jugular veins are patent. There is slightly asymmetric dermal thickening and infiltration in the left upper neck as compared the right. IMPRESSION: 1. There is no evidence of facial bone fracture. 2. Periodontal disease as above with numerous dental caries and periapical lucencies. Follow-up with dentistry is recommended. 3. No fluid collection is seen to suggest abscess. 4. There are nonspecific foci of deep soft tissue gas within the right ruling technician and parapharyngeal spaces. There is nonspecific, with only mild inflammation. Although atypical, this could represent foci of intravenous gas. A gas-forming infection is not excluded and clinical correlation will be essential. 5. The airway is patent. 6. There is asymmetric dermal thickening and mild soft tissue induration within the soft tissues of the ventral left upper neck. Correlate clinically for evidence of cellulitis. ACT 112: Negative or not required by law. Electronically signed by: Mathew Escoto M.D. 07/15/2021 9:[address] 07/16/21 06:00 CT facial bones w con HISTORY: Right-sided facial/dental pain. re-evaluation of deep soft tissue gas TECHNIQUE: Multiaxial CT images of the facial bones were performed following the intravenous administration of 94 cc of Optiray 320. Sagittal and coronal reformations were also obtained for COMPARISON STUDY: CT facial bones 07/15/2021. FINDINGS: The soft tissue gas seen within the deep right ruling technician space has resolved in the interval. Scattered periapical lucencies and multiple dental caries are again noted within the teeth. No fractures within the visualized osseous structures. Minimal mucosal thickening within the maxillary sinuses. No fluid levels within the paranasal sinuses. The mastoid air cells are clear. No abscess or mass identified. A few prominent submandibular and submental lymph nodes, unchanged. Dominant submental lymph node measures 12 x 8 mm. The pterygopalatine fossa and paratracheal fat spaces are maintained. The orbits and visualized brain parenchyma are unremarkable. IMPRESSION: 1. Interval resolution of the soft tissue gas within the right ruling technician/pharyngeal spaces. 2. No abscess or mass identified. 3. Periodontal disease again noted. 4. A few prominent submental and submandibular lymph nodes. These may be reactive. ACT 112: Negative or not required by law. Electronically signed by: Ozzy Gordillo M.D. 07/16/2021 8:24 AM Hospital Course (1) Periodontal disease: Admitted with RIGHT sided facial pain, multiple dental caries. Recent cracked tooth on the left in May CT on admission with peridentaldisease as well as a foci of deep soft tissue gas within the right ruling technician and parapharyngeal spaces. There is nonspecific, with only mild inflammation. Although atypical, this could represent foci of intravenous gas. A gas-forming infection is not excluded and clinical correlation will be essential. Clinda in ER, added Flagyl on admission Repeat CT in morning to eval gas formation vs intravenous air Discussed with Dr Trevizo, reviewed imaging --> No need for urgent intervention and will have patient in office for dental procedure/extractions on Monday. Educated patient to be NPO after midnight Monday Clindamycin PO continued at discharge, more than sufficient for anaerobic coverage Peridex mouth rinse q6 hours -- continued at discharge, rx sent Pain control Toradol sent (reported best effect with this IV compared to oxycodone) given overuse rec avoiding for now, but did discuss appropriate dosing and ibuprofen alternating in the future and NOT EXCEED max dosing Tylenol 3,000mg in 24 hour period or 2400mg for ibuprofen Got NAC while inpatient, cleared by poison control no further dosing needed Tolerated diet -- to continued dental soft/as tolerated (2) Odontalgia: As above (3) Abnormal CT scan: As above There are nonspecific foci of deep soft tissue gas within the right ruling technician and parapharyngeal spaces. There is nonspecific, with only mild inflammation. Although atypical, this could represent foci of intravenous gas. A gas-forming infection is not excluded and clinical correlation will be essential. Periodontal disease as above with numerous dental caries and periapical lucencies. Follow-up with dentistry is recommended. Repeat imaging with resolution in gas, discussed and reviewed Dr Trevizo --> will have patient f/u Monday (4) Tylenol overdose: His consumption and amount are at his weight max - EMD provider consulted poison control- recommends NAC therapy - INR 1.3--> 1.1 Avoid Tylenol for now, and discussed max dosing not exceed 3,000mg in 24hr/period of time Patient without ibuprofen at home but encouraged as toradol worked best (and sending some PO to use at home), but can alternate tylenol with ibuoprofen for pain control at [facility] Poison control contacted this morning, labs reviewed with RN -- no further NAC needed. F/U Dr Trevizo in office Monday, 8am. NPO after midnight monday Also arranged PCP with patient -- appointment Janis ROSS 07/22 to establish care Total Time Total Time Spent Total Time Spent (In Minutes): 50 Discharge Plan Discharge Items Patient Disposition: Home - Self-Care Reason For Visit: DENTAL INFECTION SOFT TISSUE GAS Discharge Diagnosis: Dental Infection Condition on Discharge: Good Activity: As commented below Non-emergency contact: Primary Care Provider and Specialist Call non-emergency contact if: you have any medication questions, your symptoms worsen, your pain is not controlled and you have a fever Follow-up/Referrals: Janis Grover CRNP [Nurse Practitioner] - 07/22/21 4:00 pm ([facility], hospital follow up. If you need to change or cancel this appointment, please call the office.) Alex Trevizo MD, DDS [Surgeon] - 07/19/21 8:00 am (Monday 8AM) Diet: Regular Diet Texture: Dental soft (bite-sized) Addtl Attending Provider Instructions: You have been hospitalized for dental infection, with gas on the initial imaging. We repeated this and that has resolved thankfully and did not require any emergent surgery. I spoke with Dr Trevizo and he will do surgery on Monday for dental extraction and you will need to be NOTHING by mouth after midnight on Monday. Their office number is [phone]. You will continue Clindamycin THREE times daily for antibiotic for seven days. Monitor for any diarrhea >10 times per day and alert doctor if this occurs. Please continue mouth washes four times daily or between eating. As discussed, clove oil can sometimes be effective for pain control and you can purchase this at the drug store/[employer]. I have sent a prescription for Toradol (ketorolac) to use for pain. Please only use every eight hours as needed. Please avoid Tylenol for the time being given overuse recently. Once done with prescription for Toradol you can use ibuprofen 600mg as needed up to four times daily. When you do take Tylenol in the future, please ensure you do not take more than 6 of the 500mg tablets in a 24 hour period of time. Please follow up with your PCP in the next 7-10 days to monitor your status. We can work on getting you a new primary care provider if you do not already have one. Please return to the ER with any uncontrolled pain, fever, chest pain, shortness of breath, inability to keep up with oral intake or for any other symptoms concerning for you. Take care! Addtl Manager Ship Provider Instructions: An appointment has been made on your behalf to become established with a primary care provider - July 22 with CODY Ortiz. This is at the [facility] office located on [address] [facility] in [place]. You may qualify to utilize the [facility] for your medical care. This clinic offers primary care and dental care and low or no cost to [facility] residents. To see if you may qualify for this option, please call their office at #[phone] and ask to be enrolled. They are located at [facility] in [place]. They often have an extended wait list, so please call as soon as you return home. It is also recommended that you become established with a dentist for regular dental care. If you are not able to utilize [facility] for this, you would have your choice of local options, not limited to: [facility] ([phone]), Dr. Enriqueta Hayes ([phone]), [facility] ([phone]), [facility] ([phone]), or many others. Pending Studies at Discharge: No Stand-Alone Forms: [facility], Work/School Release, Smoking Cessation Medications and DC Order Prescriptions: New chlorhexidine gluconate 0.12 % Mouthwash 15 ml MT Q6 Qty: 118 RF: 0 clindamycin HCl 150 mg capsule 450 mg PO Q8H 7 Days Qty: 63 RF: 0 ketorolac 10 mg tablet 10 mg PO Q8H PRN (Reason: pain) Qty: 10 RF: 0 Discharge Orders: Discharge Order (Routine); Ordered 07/16/21 Ordered By: Maddie Barr Admission Data Admit Date/Time: 07/15/21 13:25 Attending Provider: Mary Jo Villegas Admit Provider: Claude Louise Primary Care Provider: PCP,NO Other Providers: Alex Trevizo George A Supervising Physician Co-Signing Physician Notes PA Supervision Note: I personally saw and examined the patient. I verified all cano points and agree with CHRISTIE Barr with the following exceptions and/or additions: S-Pt feeling so much better, has no pain at the time of discharge. No fevers, no abd pain, no nausea. LFTs and INR normal today, NAC stopped O- Vitals reviewed Gen: [AAOx3, NAD] HEENT: [anicteric sclerae, EOMI, fractured mandibular molars, no erythema or drainage] CV: [RRR no mgr nl S1S2] Pulm: [CTAB no wcr] Abd: [+BS soft NT ND no masses or hernias] Ext: [no edema] Skin: [no rashes, warm/dry] Neuro: [full strength throughout] A/P-35 yo male here with dental infection, no evidence of Taye's, doing well now, improved ALso treated for chronic APAP ingestion with NAC, LFTs and INR normal Stable for dc to home with po clindamycin, has appt for OMFS for surgery on Monday avoidance of tylenol discussed Coding Level of Care Code 75769 OBS Care - Discharge Diagnoses Periodontal disease K05.[address] scan R93.89 Tylenol overdose T39.1X1A
--- NOTE | 2021-07-17 14:15 | Electrocardiogram Report ---
Test Reason : Blood Pressure : / mmHG Vent. Rate : 048 BPM Atrial Rate : 048 BPM P-R Int : 150 ms QRS Dur : 100 ms QT Int : 462 ms P-R-T Axes : 038 007 -04 degrees QTc Int : 412 ms Sinus bradycardia Otherwise normal ECG No previous ECGs available Confirmed by Lonnie Baum ([id number]) on 07/17/2021 2:14:46 PM Referred By: REFERRED SELF Confirmed By:Lonnie Baum
== END 2021-07-16 18:09 | disposition home or self-care (01) ==
LOC: EDINP 06:59 → ED 06:59 → SUATTDRO 13:25 → 3N 15:56

== ENCOUNTER 2024-09-28 06:46 | Observation (INO) ==
--- NOTE | 2024-09-28 06:59 | Emergency Department Note ---
Impression & Plan Seizure ED Provider Note HISTORY OF PRESENT ILLNESS: Patient is a 38-year-old male presenting with reported seizure-like activity. Patient presents via EMS. Patient's had called 911 after she woke up to the patient having reported grand mal seizure-like activity this morning. The seizure-like activity lasted for around 5 minutes per EMS. On their arrival, he was no longer seizing and reportedly postictal. Patient denies ever having a seizure before. He is currently complaining of tongue pain. Patient is amnestic to the events of the morning. Patient denies any recent medication initiation. Denies starting any new supplements or [id number] medications. He does not take any medications daily. He denies any chest pain or shortness of breath. Denies any recent fevers. Denies any recent falls or head injury. Denies any chiropractic manipulation of his neck. Patient reports that he donated plasma yesterday. He states that he has done this before. On arrival to the emergency department, the patient is alert and oriented. He is only complaining of tongue pain from his tongue laceration/abrasion. Patient denies any bowel or bladder incontinence this morning. ROS: as above PHYSICAL EXAM: Constitutional: Patient appears in no acute distress. HENT: Head: Normocephalic and atraumatic. Eyes: EOMI, PERRL Mouth/Throat: Mucous membranes moist. Small abrasion to the anterior tongue. Neck: Trachea midline. Neck supple. Cardiovascular: RRR, No murmurs, rubs or gallops. Intact distal pulses. Pulmonary/Chest: No respiratory distress. Breath sounds clear and equal bilaterally. No wheezes or rales. Abdominal: Abdomen soft, no tenderness, rebound or guarding. Musculoskeletal: No edema, tenderness or deformity noted. Skin: Warm and dry. No rash, erythema, pallor or cyanosis Psychiatric: Appropriate mood and affect for situation. Neurological: Alert and keenly responsive. CN II-XII grossly intact, moving all extremities equally and fully. MDM: - Vitals signs showed hypertension - History obtained via patient. History as above. - Chronic conditions affecting care: None - Differential diagnoses include, but are not limited to: Electrolyte abnormality; dysrhythmia; intracranial hemorrhage; CVA; new onset seizure - Order placed for continuous cardiac monitoring. At this time, monitor showed rate of 50 bpm with normal sinus rhythm, per my interpretation. - External medical records reviewed. - EKG image interpreted by myself showed normal sinus rhythm. Rate 81 bpm. QT 392. No acute ischemic changes. - Laboratory workup interpreted by myself showed normal WBC; stable hemoglobin; elevated lactate (2.8 - consistent with seizure); stable electrolytes; normal lipase - UA negative for infection - UDS positive for THC - CXR image reviewed by myself is any for pneumonia, per my interpretation. - CT head wo contrast negative for acute intracranial pathology. - Repeat lactate downtrending - Discussed case with neurologist on-call, Dr. Cantrell, at 9:35 am. He states that it sounds like the patient had a real seizure. Recommended that an MRI brain with and without contrast be obtained for further seizure workup. He states that if the MRI is relatively unremarkable, the patient can be discharged on Keppra 500 mg twice daily and follow-up in clinic for outpatient workup. He reports of any abnormalities are noted on the MRI, the patient can be admitted for further workup. He recommends no load of Keppra at this point. Recommended a dose of 500 mg now. - Discussed results and plan of care with the patient. He was given 500 mg of Keppra. - MRI brain w/wo contrast negative for acute pathology. - Discussed results with the patient. Instructed on need for follow-up with neurology clinic. A prescription for Keppra 500 mg twice daily was sent to the patient's pharmacy. Patient was advised to not drive motorized or nonmotorized vehicle for 6 months since last seizure or unexplained loss of consciousness. Advised not to engage in unsupervised activity which can pose risk of personal injury including heavy machinery work, operating in heights, bathing in bathtub or swimming unsupervised. - Patient remained stable throughout the visit. Results were discussed with the patient and patient's family. They were given the opportunity to ask questions. Had lengthy discussion with patient about supportive care return precautions. No changes to medications. Patient to follow up with primary care physician for further evaluation and management. All questions answered. Patient agreeable plan. ASSESSMENT AND PLAN: Diagnosis: seizure Plan: discharge Past Med/Surg History Problem List (Updated 09/28/24 @ 12:11 by Mariangel Villegas MD) Seizure (Acute) Tylenol overdose Periodontal disease Dental caries (Acute) Odontalgia (Acute) Abnormal CT scan (Acute) No significant past surgical history No significant past medical history Social History Smoking Status: Former smoker Preferred Language: Lithuanian marital status: Single current occupational status: employed Feels Safe at Home: Yes Assistive Devices: None Allergies Allergies Allergy/AdvReac Type Severity Reaction Status Date / Time No Known Allergies Allergy Unverified 07/15/21 07:46 Home Meds Previous Rx's Medication Instructions Recorded levetiracetam 500 mg tablet 500 mg PO BID 30 days #60 tabs 09/28/24 (Keppra) Results & Data (ED) Vital Signs Vital Signs - 24 hr 09/28/24 06:48 09/28/24 06:48 09/28/24 06:48 Temperature 36.9 C 36.8 C Temperature Source Oral Oral Pulse Rate 74 Pulse Rate [Apical] 74 Pulse Rhythm Regular Pulse Rhythm [Apical] Regular Pulse Strength Normal Pulse Strength [Apical] Normal Respiratory Rate 18 18 Respiratory Effort / Characteristics Non-Labored Spontaneous Non-Labored Spontaneous Respiratory Depth Normal Normal Respiratory Pattern Regular Regular Blood Pressure 150/93 H Blood Pressure [Right Arm] 150/93 H Blood Pressure Mean 112 Blood Pressure Mean [Right Arm] 112 Blood Pressure Position Semi-fowlers Blood Pressure Position [Right Arm] Semi-fowlers Pulse Oximetry 98 98 98 Oxygen Delivery Method Room Air Room Air Room Air Sepsis Recent Fever Within 48 Hours No Sepsis New/Unexplained Change in Mental Status N/A Sepsis Action Taken by Nursing No Action Required 09/28/24 07:13 09/28/24 07:48 09/28/24 09:00 Temperature Temperature Source Pulse Rate 68 Pulse Rate [Apical] 60 50 L Pulse Rhythm Pulse Rhythm [Apical] Regular Pulse Strength Pulse Strength [Apical] Normal Respiratory Rate 20 20 Respiratory Effort / Characteristics Non-Labored Spontaneous Respiratory Depth Normal Respiratory Pattern Regular Blood Pressure Blood Pressure [Right Arm] 134/91 149/102 H Blood Pressure Mean Blood Pressure Mean [Right Arm] 105 117 Blood Pressure Position Blood Pressure Position [Right Arm] Pulse Oximetry 99 100 Oxygen Delivery Method Room Air Sepsis Recent Fever Within 48 Hours Sepsis New/Unexplained Change in Mental Status Sepsis Action Taken by Nursing 09/28/24 10:55 Temperature Temperature Source Pulse Rate Pulse Rate [Apical] 73 Pulse Rhythm Pulse Rhythm [Apical] Pulse Strength Pulse Strength [Apical] Respiratory Rate 18 Respiratory Effort / Characteristics Respiratory Depth Respiratory Pattern Blood Pressure Blood Pressure [Right Arm] 139/94 Blood Pressure Mean Blood Pressure Mean [Right Arm] 109 Blood Pressure Position Blood Pressure Position [Right Arm] Pulse Oximetry 99 Oxygen Delivery Method Sepsis Recent Fever Within 48 Hours Sepsis New/Unexplained Change in Mental Status Sepsis Action Taken by Nursing Laboratory Data 09/28/24 06:52 09/28/24 06:52 Lab Results 09/28/24 09/28/24 09/28/24 Range/Units 06:52 06:57 07:22 WBC 8.99 (4.8-10.8) K/ul RBC 5.12 (4.70-6.10) M/uL Hgb 14.0 (14.0-18.0) g/dl Hct 43.5 (42.0-52.0) % MCV 85.0 (80.0-100.0) fL MCH 27.3 (25.0-34.0) pg MCHC 32.2 (32.0-36.0) g/dL RDW Std Deviation 47.9 H (36.4-46.3) fL RDW Coeff of Kandace 15.6 H (11.5-14.5) % Plt Count 227 (130-400) K/uL MPV 9.7 (9.4-12.4) fL Immature Gran % (Auto) 0.7 % Neut % (Auto) 49.0 % Lymph % (Auto) 41.0 % [place] % (Auto) 7.1 % Eos % (Auto) 1.8 % Baso % (Auto) 0.4 % Neut # (Auto) 4.40 (1.40-6.50) K/uL Lymph # (Auto) 3.69 H (1.20-3.40) K/uL [place]nam # (Auto) 0.64 H (0.11-0.59) K/uL Eos # (Auto) 0.16 (0.00-0.50) K/uL Baso # (Auto) 0.04 (0.00-0.20) K/uL Immature Gran # (Auto) 0.06 (0.01-0.20) K/uL Sodium 140 (136-145) mmol/L Potassium 4.3 (3.5-5.1) mmol/L Chloride 107 (98-107) mmol/L Carbon Dioxide 26 (21-32) mmol/L Anion Gap 7 (3-11) BUN 13 (6-23) mg/dl Creatinine 0.98 (0.6-1.4) mg/dl Est Cr Clr Drug Dosing 123.6 ml/min eGFR 100.59 BUN/Creatinine Ratio 13.3 (10-20) Glucose 95 (70-99(Fasting)) mg/dl Lactate 2.8 H* (0.4-2.0) mmol/L Calcium 8.9 (8.6-10.3) mg/dl Magnesium 1.9 (1.7-2.4) mg/dl Total Bilirubin 0.4 (0.2-1.0) mg/dl AST 19 (13-39) U/L ALT 18 (7-52) U/L Alkaline Phosphatase 59 (34-104) U/L Total Protein 6.2 (6.0-8.3) gm/dl Albumin 3.7 (3.4-5.0) gm/dl Globulin 2.5 (2.5-4.0) gm/dl Albumin/Globulin Ratio 1.5 (0.9-2) Lipase 33 (11-82) U/L Urine Color Yellow Urine Appearance Clear (Clear) Urine pH 5.5 (4.5-7.5) Ur Specific [place] 1.022 (1.000-1.030) Urine Protein Trace H (Negative) Urine Glucose (UA) Negative (Negative) Urine Ketones Trace H (Negative) Urine Blood Negative (Negative) Urine Nitrite Negative (Negative) Urine Bilirubin Negative (Negative) Urine Urobilinogen Negative (Negative) Ur Leukocyte Esterase Negative (Negative) Urine WBC (Auto) 0-5 (0-5) /hpf Urine RBC (Auto) 0-2 (0-2) /hpf U Hyaline Cast (Auto) 3-5 H (0-2) /lpf U Epithel Cells (Auto) 0-2 (0-2) /hpf Urine Bacteria (Auto) None Seen (None Seen) Urine Comment Urine Opiates Screen Neg (Neg) Ur Methadone, Qual Neg (Neg) Urine Fentanyl Screen Neg (Neg) Urine Barbiturates Neg (Neg) Ur Phencyclidine (PCP) Neg (Neg) U Amphetamin/Meth Scrn Neg (Neg) MDMA (Ecstasy) Screen Neg (Neg) U Benzodiazepines Scrn Neg (Neg) Ur Cocaine Metabolite Neg (Neg) U Marijuana (THC) Screen Pos H (Neg) 09/28/24 Range/Units 08:32 WBC (4.8-10.8) K/ul RBC (4.70-6.10) M/uL Hgb (14.0-18.0) g/dl Hct (42.0-52.0) % MCV (80.0-100.0) fL MCH (25.0-34.0) pg MCHC (32.0-36.0) g/dL RDW Std Deviation (36.4-46.3) fL RDW Coeff of Kandace (11.5-14.5) % Plt Count (130-400) K/uL MPV (9.4-12.4) fL Immature Gran % (Auto) % Neut % (Auto) % Lymph % (Auto) % [place] % (Auto) % Eos % (Auto) % Baso % (Auto) % Neut # (Auto) (1.40-6.50) K/uL Lymph # (Auto) (1.20-3.40) K/uL [place] # (Auto) (0.11-0.59) K/uL Eos # (Auto) (0.00-0.50) K/uL Baso # (Auto) (0.00-0.20) K/uL Immature Gran # (Auto) (0.01-0.20) K/uL Sodium (136-145) mmol/L Potassium (3.5-5.1) mmol/L Chloride (98-107) mmol/L Carbon Dioxide (21-32) mmol/L Anion Gap (3-11) BUN (6-23) mg/dl Creatinine (0.6-1.4) mg/dl Est Cr Clr Drug Dosing ml/min eGFR BUN/Creatinine Ratio (10-20) Glucose (70-99(Fasting)) mg/dl Lactate 1.3 (0.4-2.0) mmol/L Calcium (8.6-10.3) mg/dl Magnesium (1.7-2.4) mg/dl Total Bilirubin (0.2-1.0) mg/dl AST (13-39) U/L ALT (7-52) U/L Alkaline Phosphatase (34-104) U/L Total Protein (6.0-8.3) gm/dl Albumin (3.4-5.0) gm/dl Globulin (2.5-4.0) gm/dl Albumin/Globulin Ratio (0.9-2) Lipase (11-82) U/L Urine Color Urine Appearance (Clear) Urine pH (4.5-7.5) Ur Specific [place] (1.000-1.030) Urine Protein (Negative) Urine Glucose (UA) (Negative) Urine Ketones (Negative) Urine Blood (Negative) Urine Nitrite (Negative) Urine Bilirubin (Negative) Urine Urobilinogen (Negative) Ur Leukocyte Esterase (Negative) Urine WBC (Auto) (0-5) /hpf Urine RBC (Auto) (0-2) /hpf U Hyaline Cast (Auto) (0-2) /lpf U Epithel Cells (Auto) (0-2) /hpf Urine Bacteria (Auto) (None Seen) Urine Comment Urine Opiates Screen (Neg) Ur Methadone, Qual (Neg) Urine Fentanyl Screen (Neg) Urine Barbiturates (Neg) Ur Phencyclidine (PCP) (Neg) U Amphetamin/Meth Scrn (Neg) MDMA (Ecstasy) Screen (Neg) U Benzodiazepines Scrn (Neg) Ur Cocaine Metabolite (Neg) U Marijuana (THC) Screen (Neg) Administered Medications Discontinued Medications Gadobutrol (Gadobutrol 65ml Vial) 10 ml IV ONCE ONE Stop: 09/28/24 10:35 Last Admin: 09/28/24 10:34 Dose: 10 ml Documented By: WILLIAM Levetiracetam (Levetiracetam Oral Soln 100mg/Ml) 500 mg PO NOW STA Stop: 09/28/24 09:47 Last Admin: 09/28/24 10:54 Dose: 500 mg Documented By: [place] [facility] Data Radiologist's Impression: Chest X-Ray 09/28/24 06:53 EXAM: XR chest 1V portable CLINICAL HISTORY: Seizure like activity TECHNIQUE: An X-ray image of the chest is obtained in AP projection. COMPARISON: No prior studies are available for comparison. FINDINGS: Pulmonary Parenchyma: Lungs are clear bilaterally. No evidence of consolidation, collapse, or focal opacities. No pulmonary nodules are identified. No evidence of pleural effusion or pleural thickening. Heart and Mediastinum: Heart size and shape are normal. No mediastinal widening or masses. No hilar or mediastinal lymphadenopathy. Bony Thorax: Bony thorax appears intact without fractures or deformities. Soft Tissues: Soft tissues overlying the chest wall are unremarkable. IMPRESSION: No acute cardiopulmonary abnormalities are identified. Electronically signed by Andrea Francisco 09-28-2024 09:[address] 09/28/24 06:53 EXAM: CT head/brain wo con CLINICAL HISTORY: Seizure TECHNIQUE: Axial non-contrast CT scan of the brain was performed from the skull base to the high parietal region with coronal and sagittal reformats. One of the following dose reduction techniques were utilized for this exam: Automated exposure control, adjustment of the mA and/or kV according to patient size, use of iterative reconstruction. COMPARISON: None. FINDINGS: Brain Parenchyma: Normal attenuation of the cerebral hemispheres, cerebellum, and brainstem. No evidence of hemorrhage, or mass effect. Ventricular System: Ventricles are normal in size and configuration. No evidence of hydrocephalus or ventricular enlargement. Subarachnoid Spaces: Normal sulci and cisterns. No evidence of subarachnoid hemorrhage or extra-axial fluid collections. Cerebellum and Brainstem: No masses, lesions. Orbits: Normal appearance of the globes, optic nerves, and extraocular muscles. No evidence of orbital masses or abnormal density. Sinuses: Clear paranasal sinuses. No evidence of sinusitis or mucosal thickening. Mastoid Air Cells: Hypertrophied inferior nasal turbinate. Right maxillary and minimal ethmoid air cells thickening. Skull: Normal skull morphology. IMPRESSION: 1. No evidence of intraparenchymal hemorrhage or mass lesion. 2. Early changes of stroke may not be detected on CT scan. If there is a strong clinical suspicion of stroke, further MRI with diffusion-weighted imaging is recommended. Electronically signed by Andrea Francisco 09-28-2024 08:05 AM Brain MRI 09/28/24 09:46 Clinical History: Seizure Technique: Multiple T1 and T2-weighted magnetic resonance images were obtained of the brain both before and after the administration of intravenous gadolinium contrast Comparison is made to the head CT obtained today Findings: There is no sign of acute or old infarction with normal-appearing diffusion weighted images. No definite focus of demyelination is seen. No mass lesion or other area of abnormal enhancement is identified. There is no intracranial hemorrhage or other fluid collection. No midline shift or other form of herniation is seen. There is no hydrocephalus. The pituitary gland appears normal. Normal flow-voids are seen within the arteries of the [id number]. The orbits and paranasal sinuses appear normal. The mastoid air cells appear clear Impression: Unremarkable MRI of the brain Electronically signed by Ambrocio Escobedo 09-28-2024 11:52 AM Discharge Plan Visit Data Chief Complaint: Seizure Stated Complaint: SEIZURE LIKE ACTIVITY X5 MIN, NO HX ED Provider: Mariangel Villegas Discharge Problem: Seizure Patient Disposition: Home - Self-Care Condition: Fair Discharge Instructions Krames/Other Patient Handouts: ED [facility] Seizure Activity Restrictions/Additional Instructions: Your laboratory workup in the emergency department was negative for any acute abnormality. Your CT imaging of your head did not show any acute pathology. Neurology was consulted on your case and recommended starting you on Keppra 500 mg twice daily. Please call neurology clinic to schedule your close follow-up. Your MRI of your brain was also negative for any acute abnormality. Please take your next dose of Keppra tomorrow, 09/29/2024. Please return to the emergency department if you have any further seizure-like activity lasting for more than 5 minutes, headache or changes in vision, new numbness or tingling or weakness in your extremities, or any new or worsening symptoms. DO NOT drive motorized or nonmotorized vehicle for 6 months since last seizure or unexplained loss of consciousness. DO NOT engage in unsupervised activity which can pose risk of personal injury including heavy machinery work, operating in heights, bathing in bathtub or swimming unsupervised. Forms Stand Alone Forms: My [facility], Important Visit Information Prescriptions Prescriptions: New levetiracetam [Keppra] 500 mg tablet 500 mg PO BID 30 Days Qty: 60 0RF Referrals Referrals: Yasir Cantrell MD [Physician] - PCP,NO [Primary Care Provider] -
[2024-09-28 07:03] LABS: Hematocrit (blood only) 43.5 % (42.0-52.0); Hemoglobin 14.0 g/dl (14.0-18.0); Immature Granulocytes # (auto) 0.06 K/uL (0.01-0.20); Immature Granulocytes % (auto) 0.7 %; Mean Corpuscular Hemoglobin 27.3 pg (25.0-34.0); Mean Corpuscular Volume 85.0 fL (80.0-100.0); Platelet Count 227 K/uL (130-400); RDW Standard Deviation 47.9 fL (36.4-46.3); Red Blood Count 5.12 M/uL (4.70-6.10); White Blood Count 8.99 K/ul (4.8-10.8)
[2024-09-28 07:22] LABS: Alanine Aminotransferase 18.0 U/L (7-52); Albumin Globulin Ratio 1.5 (0.9-2); Alkaline Phosphatase 59.0 U/L (34-104); Anion Gap 7.0 (3-11); Bilirubin,Total 0.4 mg/dl (0.2-1.0); Blood Urea Nitrogen 13.0 mg/dl (6-23); Calcium 8.9 mg/dl (8.6-10.3); Carbon Dioxide 26.0 mmol/L (21-32); Chloride 107.0 mmol/L (98-107); Creatinine Clr Calc Pharmacy 123.6 ml/min; Globulin 2.5 gm/dl (2.5-4.0); Glucose 95.0 mg/dl (70-99(Fasting)); Lipase 33.0 U/L (11-82); Magnesium 1.9 mg/dl (1.7-2.4); Potassium 4.3 mmol/L (3.5-5.1); Sodium 140.0 mmol/L (136-145); Total Protein 6.2 gm/dl (6.0-8.3)
[2024-09-28 07:41] LABS: Appearance Urine Clear (Clear); Bacteria Urine Automated None Seen (None Seen); Epithelial Cell Urine Auto 0-2 /hpf (0-2); Glucose Urine UA Negative (Negative); RBC Urine Automated 0-2 /hpf (0-2); WBC Urine Automated 0-5 /hpf (0-5)
--- NOTE | 2024-09-28 08:06 | CT Scan Report ---
EXAM: CT head/brain wo con CLINICAL HISTORY: Seizure TECHNIQUE: Axial non-contrast CT scan of the brain was performed from the skull base to the high parietal region with coronal and sagittal reformats. One of the following dose reduction techniques were utilized for this exam: Automated exposure control, adjustment of the mA and/or kV according to patient size, use of iterative reconstruction. COMPARISON: None. FINDINGS: Brain Parenchyma: Normal attenuation of the cerebral hemispheres, cerebellum, and brainstem. No evidence of hemorrhage, or mass effect. Ventricular System: Ventricles are normal in size and configuration. No evidence of hydrocephalus or ventricular enlargement. Subarachnoid Spaces: Normal sulci and cisterns. No evidence of subarachnoid hemorrhage or extra-axial fluid collections. Cerebellum and Brainstem: No masses, lesions. Orbits: Normal appearance of the globes, optic nerves, and extraocular muscles. No evidence of orbital masses or abnormal density. Sinuses: Clear paranasal sinuses. No evidence of sinusitis or mucosal thickening. Mastoid Air Cells: Hypertrophied inferior nasal turbinate. Right maxillary and minimal ethmoid air cells thickening. Skull: Normal skull morphology. IMPRESSION: 1. No evidence of intraparenchymal hemorrhage or mass lesion. 2. Early changes of stroke may not be detected on CT scan. If there is a strong clinical suspicion of stroke, further MRI with diffusion-weighted imaging is recommended. Electronically signed by Andrea Francisco 09-28-2024 08:05 AM
[2024-09-28 08:48] LABS: Amphetamines+Metham, Urine Neg (Neg); MDMA (Ecstacy), Urine Neg (Neg); Marijuana, Urine Pos (Neg)
--- NOTE | 2024-09-28 09:04 | XRay Report ---
EXAM: XR chest 1V portable CLINICAL HISTORY: Seizure like activity TECHNIQUE: An X-ray image of the chest is obtained in AP projection. COMPARISON: No prior studies are available for comparison. FINDINGS: Pulmonary Parenchyma: Lungs are clear bilaterally. No evidence of consolidation, collapse, or focal opacities. No pulmonary nodules are identified. No evidence of pleural effusion or pleural thickening. Heart and Mediastinum: Heart size and shape are normal. No mediastinal widening or masses. No hilar or mediastinal lymphadenopathy. Bony Thorax: Bony thorax appears intact without fractures or deformities. Soft Tissues: Soft tissues overlying the chest wall are unremarkable. IMPRESSION: No acute cardiopulmonary abnormalities are identified. Electronically signed by Andrea Francisco 09-28-2024 09:04 AM
[2024-09-28] MEDS: GADOBUTROL 65ML VIAL IV ONE (10:34)
--- NOTE | 2024-09-28 11:57 | Magnetic Resonance Report ---
Clinical History: Seizure Technique: Multiple T1 and T2-weighted magnetic resonance images were obtained of the brain both before and after the administration of intravenous gadolinium contrast Comparison is made to the head CT obtained today Findings: There is no sign of acute or old infarction with normal-appearing diffusion weighted images. No definite focus of demyelination is seen. No mass lesion or other area of abnormal enhancement is identified. There is no intracranial hemorrhage or other fluid collection. No midline shift or other form of herniation is seen. There is no hydrocephalus. The pituitary gland appears normal. Normal flow-voids are seen within the arteries of the [id number]. The orbits and paranasal sinuses appear normal. The mastoid air cells appear clear Impression: Unremarkable MRI of the brain Electronically signed by Ambrocio Escobedo 09-28-2024 11:52 AM
--- NOTE | 2024-09-28 13:52 | Electrocardiogram Report ---
Test Reason : Blood Pressure : */* mmHG Vent. Rate : 81 BPM Atrial Rate : 81 BPM P-R Int : 154 ms QRS Dur : 92 ms QT Int : 392 ms P-R-T Axes : 68 6 11 degrees QTcB Int : 455 ms Poor data quality, interpretation may be adversely affected Normal sinus rhythm Minimal voltage criteria for LVH, may be normal variant ( R in aVL ) Borderline ECG When compared with ECG of 15-Jul-2021 16:33, Vent. rate has increased by 33 bpm Confirmed by Lonnie Baum ([id number]) on 09/28/2024 1:52:04 PM Referred By: REFERRED SELF Confirmed By: Lonnie Baum
--- NOTE | 2024-09-28 16:58 | History & Physical Report ---
Date of Service September 28, 2024 Assessment & Plan (1) Seizure: (2) Seizure-like activity: (3) Medication adverse effect: Plan 1. Seizure like activity/Medication adverse effect - Was started Keppra from ED but will hold as he had dizziness and lightheadedness. - Imaging Ct scan and MRI without any pathology. - No abnormal findings on labs except Lactate 2.8 and THC positive. - Will observe him now and monitor his activities. - Based on prognosis tomorrow, Will consider Neurology consult. - Probably stress and sleep deprivation related etiology for seizure. Admission and Anticipated Discharge Date Admission Date: September 28, 2024 History of Present Illness Chief Complaint: Seizure like activity for the first time for 3-4 minutes as reported by the patient's . Primary Care Provider: NO PCP Experienced abnormal body movements for 3-4 mins at 6am in the morning today, when he was sleeping witnessed by his but couldn't take the history from the as she was at home. Mentions it to be tonic-clonic and eyes turned upw олег.Has a tongue pain possibly from the tongue bite, Doesn't remember the event or any aura before seizure as he was sleeping. He had postictal confusion and lightheadedness. Reports he has disturbed sleep pattern recently and stress from work too. He smokes marijuana twice daily for many years. Patient reports that he donated plasma yesterday which he has done before too.Reports after he was given Keppra in ED he was very lightheaded and dizzy and couldn't get up when he was about to be discharged from ED. No H/o previous similar episodes, medications or supplements intake, fever, Chest pain, Sob, head injury. Allergies Allergy/AdvReac Type Severity Reaction Status Date / Time No Known Allergies Allergy Unverified 07/15/21 07:46 Home Medications Medication Instructions Recorded Confirmed Type levetiracetam 500 mg tablet 500 mg PO BID 30 days #60 tabs 09/28/24 Rx (Keppra) Past Med/Surg History Problem List (Updated 09/28/24 @ 17:40 by Gissel Jasso MD) Medication adverse effect Seizure-like activity Seizure (Acute) Tylenol overdose Periodontal disease Dental caries (Acute) Odontalgia (Acute) Abnormal CT scan (Acute) No significant past surgical history No significant past medical history Social History Smoking Status: Former smoker Preferred Language: British marital status: Single current occupational status: employed Feels Safe at Home: Yes Assistive Devices: None Physical Exam Physical Exam: Head: Normocephalic and atraumatic. Eyes: EOMI, PERRL Mouth/Throat: Mucous membranes moist. Small abrasion to the anterior tongue. Neck: Trachea midline. Neck supple. Cardiovascular: RRR, No murmurs, rubs or gallops. Intact distal pulses. Pulmonary/Chest: No respiratory distress. Breath sounds clear and equal bilaterally. No wheezes or rales. Abdominal: Abdomen soft, no tenderness, rebound or guarding. Musculoskeletal: No edema, tenderness or deformity noted. Skin: Warm and dry. No rash, erythema, pallor or cyanosis Psychiatric: Appropriate mood and affect for situation. Neurological: Alert and keenly responsive. CN II-XII grossly intact, Lower extremities strength diminished as compared to upper extremities. Results & Data Results & Data Vital Signs (Past 12 Hours) Vital Signs Temp Pulse Pulse Pulse Resp BP BP 09/28/24 16:05 36.7 C 54 L 16 137/94 09/28/24 14:59 54 L 19 09/28/24 12:27 09/28/24 12:24 58 L 10 L 151/100 H 09/28/24 12:12 58 L 14 09/28/24 11:54 50 L 10 L 09/28/24 11:42 56 L 15 09/28/24 11:24 53 L 18 09/28/24 11:12 58 L 17 09/28/24 10:55 73 18 09/28/24 10:54 59 L 16 09/28/24 10:09 64 20 09/28/24 10:00 139/94 09/28/24 09:51 64 17 09/28/24 09:30 52 L 23 09/28/24 09:27 56 L 22 09/28/24 09:15 58 L 16 09/28/24 09:00 53 L 23 09/28/24 09:00 149/102 H 09/28/24 09:00 149/102 H 09/28/24 09:00 149/102 H 09/28/24 09:00 149/102 H 09/28/24 09:00 50 L 20 09/28/24 08:48 55 L 17 09/28/24 08:36 58 L 16 09/28/24 08:12 75 27 H 09/28/24 08:03 62 14 09/28/24 08:00 142/96 H 09/28/24 07:51 65 25 H 09/28/24 07:48 59 L 19 09/28/24 07:48 134/91 09/28/24 07:48 134/91 09/28/24 07:48 134/91 09/28/24 07:48 134/91 09/28/24 07:48 134/91 09/28/24 07:48 60 20 09/28/24 07:33 69 16 09/28/24 07:21 67 18 09/28/24 07:13 68 09/28/24 07:06 70 17 09/28/24 06:48 36.8 C 74 18 09/28/24 06:48 09/28/24 06:48 36.9 C 74 18 150/93 H BP Pulse Ox O2 Del Method 09/28/24 16:05 99 Room Air 09/28/24 14:59 182/118 H 95 Room Air 09/28/24 12:27 Room Air 09/28/24 12:24 09/28/24 12:12 09/28/24 11:54 09/28/24 11:42 09/28/24 11:24 09/28/24 11:12 09/28/24 10:55 139/94 99 09/28/24 10:54 09/28/24 10:09 100 09/28/24 10:00 09/28/24 09:51 96 09/28/24 09:30 99 09/28/24 09:27 100 09/28/24 09:15 100 09/28/24 09:00 100 09/28/24 09:00 09/28/24 09:00 09/28/24 09:00 09/28/24 09:00 09/28/24 09:00 149/102 H 100 09/28/24 08:48 100 09/28/24 08:36 100 09/28/24 08:12 94 09/28/24 08:03 99 09/28/24 08:00 09/28/24 07:51 100 09/28/24 07:48 99 09/28/24 07:48 09/28/24 07:48 09/28/24 07:48 09/28/24 07:48 09/28/24 07:48 09/28/24 07:48 134/91 99 Room Air 09/28/24 07:33 99 09/28/24 07:21 09/28/24 07:13 09/28/24 07:06 97 09/28/24 06:48 150/93 H 98 Room Air 09/28/24 06:48 98 Room Air 09/28/24 06:48 98 Room Air Code Status & VTE Plan VTE Prophylaxis Plan VTE Prophylaxis will be ordered: Yes Supervising Physician Co-Signing Physician Notes I personally examined the patient and verified all cano points of history and exam, discussed case, and agree with decision making with Dr Romero gonzalez this morning. Unsteady on his feet. A lot of stress recently. Vitals noted, in general he is awake and alert pleasant no distress. HEENT normocephalic atraumatic mucous membranes moist. Breathing unlabored no accessory muscle use good effort. Skin shows no rashes no pallor or icterus. Neuro without focal deficits. Labs and diagnostics noted. New onset seizure and subsequent gait unsteadiness and leg weaknessthe gait unsteady and leg weakness seems to be subsequent to the seizure whether it is a postictal state or a side effect of Keppra is unclear, either way, watchful waiting and time and I expect his gait to improve. Given that it was a first seizure, it is certainly debatable the risk/benefit of anticonvulsants versus watchful waitingit would not be unreasonable for anticonvulsants, but given that it seems that they may have been part of what was making him weak and unsteady, it is also not unreasonable to do watchful waiting, and so we will stop the Keppra. As far as the precipitating factor for seizure, fortunately his MRI brain is cleanI suspect stress and lack of sleep are the culprits. We discussed stress management strategiesfortunately he has a lot of very good tools already between exercise, prior, and videogames, and he used to play woodwinds instruments. Discussed using these tools and a much more deliberate stress management strategy and he expressed a great understanding. Observe into tomorrow. If no further seizures and he is able to walk steadily he will be home with close outpatient follow-up; obviously if he has any further seizures or his gait does not improve we will need to evaluate and treat further. Otherwise as above.
[2024-09-28] MEDS: ENOXAPARIN INJ 40 MG/0.4 ML SYR SQ SCH (17:30)
--- NOTE | 2024-09-28 17:47 | Billing Data ---
Date of Service September 28, 2024 Coding Level of Care Code 80079 INT INP/OBS CARE
[2024-09-29 07:39] VITALS: BP 111/64; PULSE 53; RESP 16; TEMP 97.9; O2SAT 99
--- NOTE | 2024-09-29 10:51 | Discharge Summary ---
Date of Service September 29, 2024 Admission HPI Per Admitting Provider Experienced abnormal body movements for 3-4 mins at 6am in the morning today, when he was sleeping witnessed by his but couldn't take the history from the as she was at home. Mentions it to be tonic-clonic and eyes turned upward.Has a tongue pain possibly from the tongue bite, Doesn't remember the event or any aura before seizure as he was sleeping. He had postictal confusion and lightheadedness. Reports he has disturbed sleep pattern recently and stress from work too. He smokes marijuana twice daily for many years. Patient reports that he donated plasma yesterday which he has done before too.Reports after he was given Keppra in ED he was very lightheaded and dizzy and couldn't get up when he was about to be discharged from ED. No H/o previous similar episodes, medications or supplements intake, fever, Chest pain, Sob, head injury. Admission Exam Per Admitting Provider Head: Normocephalic and atraumatic. Eyes: EOMI, PERRL Mouth/Throat: Mucous membranes moist. Small abrasion to the anterior tongue. Neck: Trachea midline. Neck supple. Cardiovascular: RRR, No murmurs, rubs or gallops. Intact distal pulses. Pulmonary/Chest: No respiratory distress. Breath sounds clear and equal bilaterally. No wheezes or rales. Abdominal: Abdomen soft, no tenderness, rebound or guarding. Musculoskeletal: No edema, tenderness or deformity noted. Skin: Warm and dry. No rash, erythema, pallor or cyanosis Psychiatric: Appropriate mood and affect for situation. Neurological: Alert and keenly responsive. CN II-XII grossly intact, Lower extremities strength diminished as compared to upper extremities. Principal Diagnosis Seizure like activity Discharge Exam Head: Normocephalic and atraumatic. Eyes: EOMI, PERRL Mouth/Throat: Mucous membranes moist. Small abrasion to the anterior tongue. Neck: Trachea midline. Neck supple. Cardiovascular: RRR, No murmurs, rubs or gallops. Intact distal pulses. Pulmonary/Chest: No respiratory distress. Breath sounds clear and equal bilaterally. No wheezes or rales. Abdominal: Abdomen soft, no tenderness, rebound or guarding. Musculoskeletal: No edema, tenderness or deformity noted. Skin: Warm and dry. No rash, erythema, pallor or cyanosis Psychiatric: Appropriate mood and affect for situation. Neurological: Alert and keenly responsive. CN II-XII grossly intact, Lower extremities strength diminished as compared to upper extremities. Discharge Data Allergies Allergy/AdvReac Type Severity Reaction Status Date / Time No Known Allergies Allergy Unverified 07/15/21 07:46 Consultations 09/28/24 12:57 ED Decision to Admit Stat Ordered Studies 09/28/24 06:53 CT head/brain wo con Stat 09/28/24 09:46 MRI Brain [MR brain wo/w con] Stat Hospital Course (1) Seizure: (2) Seizure-like activity: (3) Medication adverse effect: Plan 1. Seizure like activity/Medication adverse effect - Was started Keppra from ED but will hold as he had dizziness and lightheaded ness. - Imaging Ct scan and MRI without any pathology. - No abnormal findings on labs except Lactate 2.8 and THC positive. - Will observe him now and monitor his activities. - Based on prognosis tomorrow, Will consider Neurology consult. - Probably stress and sleep deprivation related etiology for seizure. Total Time Total Time Spent Total Time Spent (In Minutes): Less than 30 Discharge Plan Discharge Items Patient Disposition: Home - Self-Care Reason For Visit: SEIZUR, POST-ICTAL SYMPTOMS Discharge Diagnosis: Seizure like activity Condition on Discharge: Fair Activity: Per Instructions section Non-emergency contact: Primary Care Provider Call non-emergency contact if: your symptoms worsen Follow-up/Referrals: PCP,NO [Primary Care Provider] - Diet: Regular Addtl Attending Provider Instructions: You were admitted to the hospital for seizure like activity. You were treated with Keppra. On our assessment today, you do not have concerning symptoms and stable enough to go back home today. In the ED your MRI brain was normal and were given the medication Keppra but you didn't tolerate it well and developed dizziness and lightheadedness and couldn't even walk so we kept you for the observation for a day and you had no concerns or any symptoms.Since, you recently were in a lot of stress from work and you were sleep deprived too so it might be triggering to the onset of seizure. Although ED prescribed you medication, Don't take keppra anymore because your condition looks more stress related. We discussed stress management strategies with tools you were already participating on such as exercise, playing woodwinds instruments and video ga mes. Other helpful activities with stress management would be meditation, breathing exercises. We would suggest you get enough sleep 7-8 hours daily. Lastly, make sure you decrease the marijuana intake too. Follow up appointments: - Make a follow up appointment with your PCP within the next week. It is very important that you follow up with them shortly after discharge from the hospital. - Keep all of your follow up appointments as already scheduled. If you cannot make an appointment, notify your provider. CALL 911 OR GO TO THE DEPARTMENT if you experience any of the following: - [related to reason for admission] - Abnormal body movement. Pending Studies at Discharge: No Stand-Alone Forms: My [facility] [email or web address], Smoking Cessation Medications and DC Order Discharge Orders: Discharge Order (Routine); Ordered 09/29/24 Ordered By: Gissel Llanos/Other Patient Handouts: First Aid: Seizures, Signs of Marijuana Addiction, Stress Relief: Activities, Healthy Sleep Habits Admission Data Admit Date/Time: 09/28/24 14:59 Attending Provider: Jose Carlos Acevedo Admit Provider: Gissel Jasso Primary Care Provider: PCP,NO Other Providers: Jose Carlos Acevedo Other Interventions: Discharge Summary Assessment (RN) Last Done: 09/29/24 09:55 Supervising Physician Co-Signing Physician Notes I personally examined the patient and verified all cano points of history and exam, discussed case, and agree with decision making with Dr Jasso feels good. No further seizure activity. He is steady on his feet and getting around well. Feels up to going home. Vitals noted, in general he is awake and alert pleasant no distress. HEENT normocephalic atraumatic mucous membranes moist. Breathing unlabored no accessory muscle use good effort. Skin shows no rashes no pallor or icterus. Neuro without focal deficits. New onset seizure and subsequent gait unsteadiness and leg weaknessthe gait unsteady and leg weakness seems to be subsequent to the seizure whether it is a postictal state or a side effect of Keppra is unclear, either way, he is now steady on his feet and feels up to going home. He has had no further seizures. Discussed that with a 1time seizure it is both reasonable to start an anticonvulsant or watchful waiting. Given that he seems to have been potentially unsteady from the Keppra, he and I both agree that it is reasonable for watchful waiting. With no structural neurologic disease identified on imaging, most likely lack of sleep and stress. Discussed stress management. Will establish with PCP with [facility], ask for neurology referral. Reiterated again no driving and no heavy equipment/nothing that could potentially be life-threatening or deadly should he have a seizurehe expresses understanding. Resident Activity Tracking Resident Involvement: Resident Care Provided Care Provided: Adult Hospital Medicine
--- NOTE | 2024-09-29 16:43 | Billing Data ---
Date of Service September 29, 2024 Coding Level of Care Code 95433 IN/OBS DISCH 30 MIN/LESS
[2024-09-30 14:27] LABS: Marijuana Quant, GCMS Urine 576 ng/mL (<5)
== END 2024-09-29 14:50 | disposition home or self-care (01) ==
LOC: ED 06:46 → 3W 06:46

== ENCOUNTER 2025-01-23 23:35 | Observation (INO) ==
[2025-01-23 23:45] VITALS: TEMP 97.9
--- NOTE | 2025-01-23 23:46 | Emergency Department Note ---
Impression & Plan Seizure-like activity Admission ED Provider Note HPI: History obtained from patient and EMS report. The patient is a 39-year-old gentleman who presents emergency department with a chief complaint of seizure-like activity and headache. Patient states that he was working outside throughout most of the day, he states when he got home he began to develop a headache and then had some period of seizure-like activity that was witnessed by his . Patient states that when he awoke EMS personnel were helping him. Patient states he does have a history of similar episodes but does not have a formal diagnosis of seizure and does not take any antiepileptic medications. On arrival here to the ED the patient complains of a severe headache but he is alert and oriented x 3, he is hemodynamically stable on arrival and he does not have any focal deficits. Patient does note that he had bitten his tongue on the right side where he does have a wound without active bleeding. ROS: - Per HPI Differential Diagnosis: Seizure, syncope, pseudoseizure, arrhythmia, vasovagal event, polysubstance use, amongst other potential pathologies. *Outpatient medications and allergy history reviewed. PE: General: Alert HEENT: Normocephalic, trachea midline, laceration to the right side of the tongue without active bleeding Eyes: Extraocular eye movement is intact, no scleral erythema Pulmonary: Clear to auscultation bilaterally, no wheezing Cardio: Regular rate and rhythm GI: Abdomen is soft to palpation : No suprapubic tenderness MSK: No evidence of trauma or malformation of the extremities, no edema Skin: No evidence of rash Neuro: Alert, no focal deficits, equal bilateral systems coordinator strength, symmetrical facial movements are appreciated Psychiatric: Cooperative INDEPENDENT INTERPRETATIONS: monitor technician: (As interpreted by myself): - An order was placed for continuous cardiac monitoring - Patient was noted to be in sinus rhythm with a rate of 80 EKG: (As interpreted by myself): Rate: 72 Rhythm: Sinus rhythm Intervals: Within normal limits ST changes: No ST elevation Time: 0001 Interventions provided in ED: - IV fluid bolus, IV Keppra, IV morphine, IV Zofran Medical Decision Making: IV was established and lab work obtained, patient was placed on phototypesetting equipment monitor. Patient was given IV Keppra as well as IV fluids, he was given IV morphine and IV Zofran for headache. Lab work shows no leukocytosis, hemoglobin is stable at 13.0, platelet count is normal, CMP does not show any evidence of any critical findings, lactic acid is slightly elevated at 2.3. EKG shows sinus rhythm per my interpretation without any evidence of any harmful arrhythmia or acute ischemic changes. CT imaging of the head was obtained that does not show any evidence of any acute process. On my reassessment the patient is sleeping, he states he still does have a headache but he appears much more comfortable than when he arrived. He does not have any focal deficits and he remains alert and oriented. Given that the patient did have an event this evening that was witnessed that apparently was consistent with a tonic-clonic seizure and he did bite his tongue, I feel he would benefit from admission for EEG and possibly starting antiepileptic therapy. Patient was in agreement to this plan. [facility] hospitalist service was consulted for admission and the patient was placed for admission in stable condition. Consultants/Discussions held with other healthcare providers: - Hospitalist, Dr. Najera Disposition discussion held by myself with: - Patient Diagnosis: 1. Seizure-like event, acute 2. Tongue laceration, acute 3. Lactic acid elevation, acute, mild Disposition: Admission Cong Means DO Emergency Medicine Past Med/Surg History Problem List (Updated 01/24/25 @ 01:34 by Cong Means DO) Medication adverse effect Seizure-like activity (Acute) Seizure (Acute) Tylenol overdose Periodontal disease Dental caries (Acute) Odontalgia (Acute) Abnormal CT scan (Acute) No significant past surgical history No significant past medical history Social History Smoking Status: Never smoker Hx Alcohol Use: Yes Alcohol type: wine Hx Substance Use: No Preferred Language: Georgian Communication Ability: Effective Last Trimmer Required: No Beliefs That Will Affect Care: None marital status: Single Current Living Situation: Spouse current occupational status: employed Feels Safe at Home: Yes Assistive Devices: None Allergies Allergies Allergy/AdvReac Type Severity Reaction Status Date / Time shellfish derived Allergy Intermediate HIVES/HEADA Verified 01/24/25 00:29 MARGUERITE Home Meds Home Medications Medication Instructions Recorded Confirmed No Known Home Medications 01/24/25 01/24/25 Results & Data (ED) Vital Signs Vital Signs - 24 hr 01/23/25 23:39 01/23/25 23:47 01/23/25 23:47 Temperature 36.6 C Temperature Source Oral Pulse Rate 78 79 Respiratory Rate 17 Respiratory Effort / Characteristics Non-Labored Spontaneous Respiratory Depth Normal Respiratory Pattern Regular Blood Pressure 152/96 H Blood Pressure Mean 114 Blood Pressure Position Lying Pulse Oximetry 98 Oxygen Delivery Method Room Air Room Air Sepsis Recent Fever Within 48 Hours No Sepsis New/Unexplained Change in Mental Status N/A Sepsis Action Taken by Nursing No Action Required Laboratory Data 01/23/25 23:47 01/23/25 23:47 Lab Results 01/23/25 01/23/25 01/24/25 Range/Units 23:47 23:56 00:04 WBC 9.47 (4.8-10.8) K/ul RBC 4.70 (4.70-6.10) M/uL Hgb 13.0 L (14.0-18.0) g/dL Hct 38.9 L (42.0-52.0) % MCV 82.8 (80.0-100.0) fL MCH 27.7 (25.0-34.0) pg MCHC 33.4 (32.0-36.0) g/dL RDW Std Deviation 45.2 (36.4-46.3) fL RDW Coeff of Kandace 14.9 H (11.5-14.5) % Plt Count 239 (130-400) K/uL MPV 9.6 (9.4-12.4) fL Immature Gran % (Auto) 0.4 % Neut % (Auto) 69.3 % Lymph % (Auto) 22.8 % Hamilton % (Auto) 6.8 % Eos % (Auto) 0.3 % Baso % (Auto) 0.4 % Neut # (Auto) 6.56 H (1.40-6.50) K/uL Lymph # (Auto) 2.16 (1.20-3.40) K/uL Hamilton # (Auto) 0.64 H (0.11-0.59) K/uL Eos # (Auto) 0.03 (0.00-0.50) K/uL Baso # (Auto) 0.04 (0.00-0.20) K/uL Immature Gran # (Auto) 0.04 (0.01-0.20) K/uL Sodium 137 (136-145) mmol/L Potassium 4.5 (3.5-5.1) mmol/L Chloride 104 (98-107) mmol/L Carbon Dioxide 25 (21-32) mmol/L Anion Gap 8 (3-11) BUN 10 (6-23) mg/dl Creatinine 0.93 (0.6-1.4) mg/dl Est Cr Clr Drug Dosing 129.6 ml/min eGFR 106.45 BUN/Creatinine Ratio 10.8 (10-20) Glucose 109 H (70-99(Fasting)) mg/dl POC Glucose 101 H (70-99) mg/dl Lactate 2.3 H* (0.4-2.0) mmol/L Calcium 9.2 (8.6-10.3) mg/dl Magnesium 2.0 (1.7-2.4) mg/dl Total Bilirubin 0.6 (0.2-1.0) mg/dl AST 26 (13-39) U/L ALT 25 (7-52) U/L Alkaline Phosphatase 71 (34-104) U/L Total Protein 7.0 (6.0-8.3) gm/dl Albumin 3.9 (3.4-5.0) gm/dl Globulin 3.1 (2.5-4.0) gm/dl Albumin/Globulin Ratio 1.3 (0.9-2) Administered Medications Discontinued Medications Sodium Chloride (Nss) 1,000 mls @ 999 mls/hr IV .Q1H1M ONE Stop: 01/24/25 00:43 Last Infusion: 01/24/25 01:13 Dose: Infused Documented By: Admin: 01/23/25 23:50 Dose: 999 mls/hr Documented By: Levetiracetam (Levetiracetam 500 Mg/5 Ml Vial) 2,000 mg IV NOW STA Stop: 01/23/25 23:45 Last Admin: 01/23/25 23:51 Dose: 2,000 mg Documented By: Morphine Sulfate (Morphine Sulfate 4 Mg/Ml 1 Ml Carp\Vial) 4 mg IV NOW STA Stop: 01/23/25 23:44 Last Admin: 01/23/25 23:51 Dose: 4 mg Documented By: Ondansetron HCl (Ondansetron Inj 2 Mg/Ml 2 Ml Vial) 4 mg IV NOW STA Stop: 01/23/25 23:44 Last Admin: 01/23/25 23:50 Dose: 4 mg Documented By: Imaging Data Radiologist's Impression: Head CT 01/23/25 23:43 EXAM: CT head/brain wo con CLINICAL HISTORY: Seizure/COX TECHNIQUE: Axial non-contrast CT scan of the brain was performed from the skull base to the high parietal region in axial, sagittal and coronal reconstructions. One of the following dose reduction techniques were utilized for this exam: Automated exposure control, adjustment of the mA and/or kV according to patient size, use of iterative reconstruction. COMPARISON: 09/28/2024 CT and MRI FINDINGS: Brain Parenchyma: Normal attenuation of the cerebral hemispheres, cerebellum, and brainstem. No evidence of acute infarct, hemorrhage, or mass effect. No abnormal areas of hypo- or hyperattenuation. Ventricular System: Ventricles are normal in size and configuration. No evidence of hydrocephalus or ventricular enlargement. Subarachnoid Spaces: Normal sulci and cisterns. No evidence of subarachnoid hemorrhage or extra-axial fluid collections. Cerebellum and Brainstem: No masses, lesions, or areas of abnormal density. Orbits: Normal appearance of the globes, optic nerves, and extraocular muscles. No evidence of orbital masses or abnormal density. Sinuses: Clear paranasal sinuses. No evidence of sinusitis or mucosal thickening. Mastoid Air Cells: Clear mastoid air cells. No evidence of mastoiditis. Skull: Normal skull morphology. IMPRESSION: Normal CT of the head without contrast. No significant interval changes. Electronically signed by Andrea Francisco 01-24-2025 12:51 AM Discharge Plan Visit Data Chief Complaint: Seizure Stated Complaint: Seizure ED Provider: Cong Means Discharge Problem: Seizure-like activity Patient Disposition: Admitted As Inpatient Condition: Fair Forms Stand Alone Forms: [employer] [facility] [place] [employer] Prescriptions Prescriptions: No Action No Known Home Medications Referrals Referrals: PCP,NO [Primary Care Provider] -
[2025-01-23] MEDS: SODIUM CHLORIDE 0.9% 1,000 ML IV ONE (23:50)
[2025-01-23] MEDS: ONDANSETRON INJ 2 MG/ML 2 ML VIAL IV STA (23:50)
[2025-01-23] MEDS: MoRPHine SULFATE 4 MG/ML 1 ML CARP\\VIAL IV STA (23:51)
[2025-01-24 00:03] LABS: Hematocrit (blood only) 38.9 % (42.0-52.0); Hemoglobin 13.0 g/dL (14.0-18.0); Immature Granulocytes # (auto) 0.04 K/uL (0.01-0.20); Immature Granulocytes % (auto) 0.4 %; Mean Corpuscular Hemoglobin 27.7 pg (25.0-34.0); Mean Corpuscular Volume 82.8 fL (80.0-100.0); Platelet Count 239 K/uL (130-400); RDW Standard Deviation 45.2 fL (36.4-46.3); Red Blood Count 4.70 M/uL (4.70-6.10); White Blood Count 9.47 K/ul (4.8-10.8)
[2025-01-24 00:21] LABS: Alanine Aminotransferase 25.0 U/L (7-52); Albumin Globulin Ratio 1.3 (0.9-2); Albumin Level 3.9 gm/dl (3.4-5.0); Alkaline Phosphatase 71.0 U/L (34-104); Anion Gap 8.0 (3-11); Bilirubin,Total 0.6 mg/dl (0.2-1.0); Blood Urea Nitrogen 10.0 mg/dl (6-23); Calcium 9.2 mg/dl (8.6-10.3); Carbon Dioxide 25.0 mmol/L (21-32); Chloride 104.0 mmol/L (98-107); Creatinine Clr Calc Pharmacy 129.6 ml/min; Globulin 3.1 gm/dl (2.5-4.0); Glucose 109.0 mg/dl (70-99(Fasting)); Magnesium 2.0 mg/dl (1.7-2.4); Potassium 4.5 mmol/L (3.5-5.1); Sodium 137.0 mmol/L (136-145); Total Protein 7.0 gm/dl (6.0-8.3)
--- NOTE | 2025-01-24 00:51 | CT Scan Report ---
EXAM: CT head/brain wo con CLINICAL HISTORY: Seizure/COX TECHNIQUE: Axial non-contrast CT scan of the brain was performed from the skull base to the high parietal region in axial, sagittal and coronal reconstructions. One of the following dose reduction techniques were utilized for this exam: Automated exposure control, adjustment of the mA and/or kV according to patient size, use of iterative reconstruction. COMPARISON: 09/28/2024 CT and MRI FINDINGS: Brain Parenchyma: Normal attenuation of the cerebral hemispheres, cerebellum, and brainstem. No evidence of acute infarct, hemorrhage, or mass effect. No abnormal areas of hypo- or hyperattenuation. Ventricular System: Ventricles are normal in size and configuration. No evidence of hydrocephalus or ventricular enlargement. Subarachnoid Spaces: Normal sulci and cisterns. No evidence of subarachnoid hemorrhage or extra-axial fluid collections. Cerebellum and Brainstem: No masses, lesions, or areas of abnormal density. Orbits: Normal appearance of the globes, optic nerves, and extraocular muscles. No evidence of orbital masses or abnormal density. Sinuses: Clear paranasal sinuses. No evidence of sinusitis or mucosal thickening. Mastoid Air Cells: Clear mastoid air cells. No evidence of mastoiditis. Skull: Normal skull morphology. IMPRESSION: Normal CT of the head without contrast. No significant interval changes. Electronically signed by Andrea Francisco 01-24-2025 12:51 AM
--- NOTE | 2025-01-24 01:22 | History & Physical Report ---
Date of Service January 24, 2025 Assessment & Plan (1) Seizure-like activity: (2) Seizure: (3) Headache: Plan #Seizure/Severe COX - CT-Head: Normal, no findings; Normal EKG - CBC, CMP WNL; Lactate, 2.3, repeat pending - prior pos marijuana (THC) screen (THC carboxy, 576, H), no Med Marijuana card, uses his 's dispensary-obtained marijuana - denies other recreational drug use, UDS pending - Keppra, 500 mg, PO, BID - Toradol, 15 mg, IV, now and Tylenol, 1000 mg, IV given for COX - Neurology consulted, appreciate recommendations, MRI and EEG ordered - No chronic conditions Code status: Full code Disposition: Med-Tele VTE Prophylaxis: SCD's (to the knee) FENGI: NSS (w/ 20 mEq KCl), 45 mL/hr, Regular diet--starting w/ lunch History of Present Illness Chief Complaint: Seizure Primary Care Provider: NO PCP Patient is a 39 yo M w/ a PMHx of periodontal disease, dental caries, presenting tonight after reportedly having a seizure. witnessed the seizure, patient thinks he lost consciousness during this time (but not sure). Pt notes that he had 3 seizures and became more alert/aware between the episodes. Pt's called the ambulance/EMS at some point. Pt denies any urinary incontinence during this event but does note that he bit his tongue (and showed me a laceration of the r. lateral tongue). Pt denies any seizure history. Patient does endorse past and continued marijuana use, smokes it daily, but gets it from his (who has a medical marijuana card) and has been getting the same strain from the dispensary for a while now. Patient self-medicates with the marijuana because it relieves his anxiety, allows him to think more clearly. Patient denies smoking yesterday (01/23/25) the day when a mild morning headache turned into a very severe headache around 5:30 that evening (pt notes that it was one of the worst COX's he's had in his life). He didn't take anything for it, but instead laid down with a warm compress and tried to sleep. The seizures started later that evening. Patient works at the [employer] and denies any recent head trauma, concussion, or other traumatic-type contributory event that could have precipitated this event. Patient denies any other recreational drug use, denies tobacco/vape use, and endorses only occasional alcohol use. Patient denies any known family Hx of seizures or brain aneurysms. Allergies Allergy/AdvReac Type Severity Reaction Status Date / Time shellfish derived Allergy Intermediate HIVES/HEADA Verified 01/24/25 00:29 MARGUERITE Home Medications Medication Instructions Recorded Confirmed Type levetiracetam 500 mg tablet 500 mg PO Q12H 30 days #60 tabs 01/24/25 Rx (Keppra) Past Med/Surg History Problem List (Updated 01/24/25 @ 02:58 by Michael Contreras MD) Headache Medication adverse effect Seizure-like activity (Acute) Seizure (Acute) Tylenol overdose Periodontal disease Dental caries (Acute) Odontalgia (Acute) Abnormal CT scan (Acute) No significant past surgical history No significant past medical history Social History Smoking Status: Former smoker Tobacco Type: Cigarettes Hx Alcohol Use: Yes Alcohol type: wine Hx Substance Use: Yes Preferred Language: [place] Communication Ability: Effective Recruiting Consultant Required: No Beliefs That Will Affect Care: None marital status: Single Current Living Situation: Spouse current occupational status: employed Feels Safe at Home: Yes Assistive Devices: None Review of Systems Review of Systems: All systems reviewed & are unremarkable except as noted in HPI & below Physical Exam Constitutional: well nourished and cooperative ENMT: laceration noted on r. lateral tongue Respiratory: normal respiratory effort, lungs clear to auscultation Cardiovascular: RRR, no murmur, no edema Extremities: no pedal edema Gastrointestinal (Abdomen): normal bowel sounds, soft, nontender, no hepatosplenomegaly Neurologic: normal touch/pain/proprioception, CN's II-XI intact bilaterally and moves all extremities; no focal motor deficits Speech / Cognition: normal speech Motor/Sensory: no tremor and normal movement Cranial Nerves: PERRL, normal accommodation, EOM intact bilaterally and normal facial strength Coordination: normal [id number] test Results & Data Results & Data Vital Signs (Past 12 Hours) Vital Signs Temp Pulse Resp BP Pulse Ox O2 Del Method 01/23/25 23:47 79 01/23/25 23:47 Room Air 01/23/25 23:39 36.6 C 78 17 152/96 H 98 Room Air Diagnostic Findings Head CT 01/23/25 23:43 EXAM: CT head/brain wo con CLINICAL HISTORY: Seizure/COX TECHNIQUE: Axial non-contrast CT scan of the brain was performed from the skull base to the high parietal region in axial, sagittal and coronal reconstructions. One of the following dose reduction techniques were utilized for this exam: Automated exposure control, adjustment of the mA and/or kV according to patient size, use of iterative reconstruction. COMPARISON: 09/28/2024 CT and MRI FINDINGS: Brain Parenchyma: Normal attenuation of the cerebral hemispheres, cerebellum, and brainstem. No evidence of acute infarct, hemorrhage, or mass effect. No abnormal areas of hypo- or hyperattenuation. Ventricular System: Ventricles are normal in size and configuration. No evidence of hydrocephalus or ventricular enlargement. Subarachnoid Spaces: Normal sulci and cisterns. No evidence of subarachnoid hemorrhage or extra-axial fluid collections. Cerebellum and Brainstem: No masses, lesions, or areas of abnormal density. Orbits: Normal appearance of the globes, optic nerves, and extraocular muscles. No evidence of orbital masses or abnormal density. Sinuses: Clear paranasal sinuses. No evidence of sinusitis or mucosal thickening. Mastoid Air Cells: Clear mastoid air cells. No evidence of mastoiditis. Skull: Normal skull morphology. IMPRESSION: Normal CT of the head without contrast. No significant interval changes. Electronically signed by Andrea Francisco 01-24-2025 12:51 AM Supervising Physician Co-Signing Physician Notes Attending addendum: I have physically seen this patient, have supervised the medical residents activities, and agree with the H&P unless as otherwise noted. Assessment and Plan: The patient is a 39-year-old male with past medical history including periodontal disease, and dental caries. He presents to the emergency department following a witnessed seizure by his , with loss of consciousness for an unknown time. Patient reports he had a total of 3 seizures, reports being vanessa rt, aware between the episodes. Patient's called the ambulance, who brought him to the ED for assessment. He does note that he bit his tongue at some point in the process. Patient reports daily smoking, and marijuana use. The patient notes that they began with a headache, which worsened as the day progressed, and became very severe at around 530 this evening. He reports laying down at that time, and tried to sleep. The seizures then started later on in the evening. Seizure-like activity/severe headache- CT scan of the head without contrast showed no acute findings EKG is normal CBC and chemistry profile normal Lactic acid is mildly elevated 2.3 with follow-up pending UDS positive for THC From the ED patient received the following: Normal saline 1 L bolus, morphine 4 mg IV, Zofran 4 mg IV, and Keppra 2 g IV. Keppra 5 mg p.o. twice daily Toradol 15 mg IV every 6 hours as needed 1000 mg IV every 8 hours as needed MRI brain ordered EEG ordered Seizure precautions Consult neurology Tobacco use disorder- Cessation counseling
[2025-01-24] MEDS ORDERED: ONDANSETRON INJ 2 MG/ML 2 ML VIAL IV PRN (01:58)
[2025-01-24] MEDS ORDERED: ACETAMINOPHEN 500 MG TAB PO PRN ×2 (01:58→02:26)
[2025-01-24] MEDS: KETOROLAC TROMETHAMINE 15 MG/ML VIAL IV STA (02:44)
[2025-01-24] MEDS: ACETAMINOPHEN 1,000 MG/100 ML VIAL IV STA (02:45)
[2025-01-24] MEDS: NSS + 20MEQ KCL 20 MEQ/1,000 ML BAG IV SCH (04:50)
[2025-01-24 05:40] LABS: Anion Gap 6.0 (3-11); Blood Urea Nitrogen 11.0 mg/dl (6-23); Calcium 8.7 mg/dl (8.6-10.3); Carbon Dioxide 24.0 mmol/L (21-32); Chloride 106.0 mmol/L (98-107); Creatinine Clr Calc Pharmacy 150.6 ml/min; Glucose 104.0 mg/dl (70-99(Fasting)); Potassium 4.2 mmol/L (3.5-5.1); Sodium 136.0 mmol/L (136-145)
[2025-01-24] MEDS: levETIRAcetam 500 MG TAB PO SCH (08:40)
--- NOTE | 2025-01-24 08:59 | Magnetic Resonance Report ---
EXAM: MR brain wo con CLINICAL HISTORY: Seizures. TECHNIQUE: MRI of the brain was performed without contrast with multiplanar sequences obtained. COMPARISON: MRI: 09/28/2024, CT: 01/22/2025. FINDINGS: Brain Parenchyma: No evidence of acute infarction or hemorrhage. Normal salcedo-white matter differentiation. No mass lesions or focal cortical abnormalities identified. Ventricles and Sulci: Normal size and configuration of the lateral ventricles, third ventricle, and fourth ventricle. No evidence of hydrocephalus or ventriculomegaly. Sylvian fissures, sulci, and cisterns are within normal limits. Posterior Fossa: Cerebellum and brainstem appear normal without evidence of mass lesions or signal abnormalities. Cranial Nerves: Normal course and appearance of cranial nerves identified. Vessels: No evidence of vascular malformations or aneurysms. Intracranial arteries and veins appear normal without evidence of stenosis or occlusion. Orbits and Skull Base: Orbits and skull base structures are normal without evidence of abnormalities. IMPRESSION: 1. MRI of the brain: 2. No acute intracranial abnormality identified. 3. Normal appearance of brain parenchyma, ventricular system, posterior fossa, cranial nerves, vessels, orbits, and skull base. 4. Comparison is made with previous MRI dated 09/28/[address] dated 01/22/2025. No interval change. Electronically signed by Andrea Francisco 01-24-2025 08:58 AM
--- NOTE | 2025-01-24 09:00 | Electrocardiogram Report ---
Test Reason : Blood Pressure : */* mmHG Vent. Rate : 72 BPM Atrial Rate : 72 BPM P-R Int : 136 ms QRS Dur : 106 ms QT Int : 416 ms P-R-T Axes : -10 1 -10 degrees QTcB Int : 455 ms Poor data quality, interpretation may be adversely affected Normal sinus rhythm T wave abnormality, consider inferior ischemia Borderline ECG When compared with ECG of 28-Sep-2024 06:51, Inferior T abnormality is now present Confirmed by Lonnie Baum ([id number]) on 01/24/2025 9:00:31 AM Referred By: REFERRED SELF Confirmed By: Lonnie Baum
--- NOTE | 2025-01-24 09:17 | Hospitalist Progress Note ---
Date of Service January 24, 2025 Assessment & Plan (1) Seizure-like activity: (2) Seizure: (3) Headache: Plan #Seizure/Severe COX - CT-Head: Normal, no findings; Normal EKG - CBC, CMP WNL; Lactate, 2.3, repeat pending - prior pos marijuana (THC) screen (THC carboxy, 576, H), no Med Marijuana card, uses his 's dispensary-obtained marijuana - denies other recreational drug use, UDS pending - Keppra, 500 mg, PO, BID - Toradol, 15 mg, IV, now and Tylenol, 1000 mg, IV given for COX - Neurology consulted, appreciate recommendations, MRI and EEG ordered - No chronic conditions Code status: Full code Disposition: Med-Tele VTE Prophylaxis: SCD's (to the knee) FENGI: NSS (w/ 20 mEq KCl), 45 mL/hr, Regular diet--starting w/ lunch Admission and Anticipated Discharge Date Admission Date: January 24, 2025 Physical Exam Physical Exam: GA: well groomed, well nourished in no apparent distress. AAOx3 HEENT: head normocephalic, atraumatic. EOMI. nares patent. laceration on right side of tongue. RESP: vesicular breath sounds b/l. No wheezes, rhonchi, or rales CARDIOVASCULAR: S1 and S2 heard. No murmurs, rubs, or gallops. Radial pulses 2+ b/l RRR GI: Normoactive bowel sounds, no tenderness or masses felt to palpation MSK: no gross abnormalities or focal deficits SKIN: warm, dry, no edema PSYCH: appropriate mood and affect NEURO: no focal deficits. speech fluent Results & Data Results & Data Vital Signs (Past 12 Hours) Vital Signs Temp Pulse Pulse Resp BP BP Pulse Ox 01/24/25 08:40 54 L 14 132/82 99 01/24/25 06:00 57 L 23 126/85 93 01/24/25 04:40 36.6 C 67 20 123/60 97 01/24/25 04:40 97 01/24/25 03:52 63 01/24/25 03:14 56 L 18 113/77 94 01/24/25 01:30 59 L 17 98 01/24/25 01:30 141/93 H 01/24/25 00:30 140/90 01/24/25 00:30 57 L 16 95 01/23/25 23:47 79 01/23/25 23:47 01/23/25 23:39 36.6 C 78 17 152/96 H 98 O2 Del Method 01/24/25 08:40 Room Air 01/24/25 06:00 Room Air 01/24/25 04:40 Room Air 01/24/25 04:40 Room Air 01/24/25 03:52 01/24/25 03:14 Room Air 01/24/25 01:30 Room Air 01/24/25 01:30 01/24/25 00:30 01/24/25 00:30 Room Air 01/23/25 23:47 01/23/25 23:47 Room Air 01/23/25 23:39 Room Air
--- NOTE | 2025-01-24 11:49 | Electroencephalogram ---
EEG Procedure Note Date of Service January 24, 2025 Start / End Times Start Time: 6:49 AM End Time: 7:09 AM Referring Physician Ben History Seizure-like episodes Home Medication List Medication Instructions Recorded Confirmed Type No Known Home Medications 01/24/25 01/24/25 History Inpatient Medication List Potassium Chloride/Sodium Chloride (Normal Saline W/20 Meq Kcl) 20 meq in 1,000 mls @ 45 mls/hr IV .[id number] JEREMY Stop: 01/27/25 01:59 Last Admin: 01/24/25 04:50 Dose: 45 mls/hr Documented By: ANAHY Levetiracetam (Levetiracetam 500 Mg Tab) 500 mg PO Q12H JEREMY Stop: 02/23/25 08:59 Last Admin: 01/24/25 08:40 Dose: 500 mg Documented By: MINO Discontinued Medications Sodium Chloride (Nss) 1,000 mls @ 999 mls/hr IV .Q1H1M ONE Stop: 01/24/25 00:43 Last Infusion: 01/24/25 01:13 Dose: Infused Documented By: Admin: 01/23/25 23:50 Dose: 999 mls/hr Documented By: Acetaminophen (Ofirmev) 1,000 mg in 100 mls @ 400 mls/hr IV NOW STA Stop: 01/24/25 02:48 Last Infusion: 01/24/25 03:16 Dose: Infused Documented By: Admin: 01/24/25 02:45 Dose: 400 mls/hr Documented By: Ketorolac Tromethamine (Ketorolac Tromethamine 15 Mg/Ml Vial) 15 mg IV NOW STA Stop: 01/24/25 02:37 Last Admin: 01/24/25 02:44 Dose: 15 mg Documented By: Levetiracetam (Levetiracetam 500 Mg/5 Ml Vial) 2,000 mg IV NOW STA Stop: 01/23/25 23:45 Last Admin: 01/23/25 23:51 Dose: 2,000 mg Documented By: Morphine Sulfate (Morphine Sulfate 4 Mg/Ml 1 Ml Carp\Vial) 4 mg IV NOW STA Stop: 01/23/25 23:44 Last Admin: 01/23/25 23:51 Dose: 4 mg Documented By: Ondansetron HCl (Ondansetron Inj 2 Mg/Ml 2 Ml Vial) 4 mg IV NOW STA Stop: 01/23/25 23:44 Last Admin: 01/23/25 23:50 Dose: 4 mg Documented By: Description This is a 21 electrode EEG with a single channel dedicated to limited EKG. The electrodes were placed in accordance with the International 10-20 system. There is a posterior dominant rhythm of 8 to 9 Hz which is symmetrically distributed and attenuates with eye opening. There is a normal anterior to posterior organization. Photic stimulation is unremarkable. Hyperventilation is not performed. There is an intermittent generalized spike and slow wave of maximal amplitude over the right frontal region seen throughout the study. Interpretation Abnormal awake/drowsy EEG consistent with seizure disorder, possibly primary generalized or focal onset with secondary rapid generalization. This EEG indicates an increased risk for seizures, would recommend treatment with an antiseizure medication. [facility] EEG Procedure Codes Indication for Procedure (1) Seizure: Neurology Neurology: 42258 EEG include record awake & drowsy
[2025-01-24 13:26] VITALS: BP 131/73; PULSE 50; RESP 16; O2SAT 97
--- NOTE | 2025-01-24 16:32 | Discharge Summary ---
Date of Service January 24, 2025 Admission HPI Per Admitting Provider Patient is a 39 yo M w/ a PMHx of periodontal disease, dental caries, presenting tonight after reportedly having a seizure. witnessed the seizure, patient thinks he lost consciousness during this time (but not sure). Pt notes that he had 3 seizures and became more alert/aware between the episodes. Pt's called the ambulance/EMS at some point. Pt denies any urinary incontinence during this event but does note that he bit his tongue (and showed me a laceration of the r. lateral tongue). Pt denies any seizure history. Patient does endorse past and continued marijuana use, smokes it daily, but gets it from his (who has a medical marijuana card) and has been getting the same strain from the dispensary for a while now. Patient self-medicates with the marijuana because it relieves his anxiety, allows him to think more clearly. Patient denies smoking yesterday (01/23/25) the day when a mild morning headache turned into a very severe headache around 5:30 that evening (pt notes that it was one of the worst COX's he's had in his life). He didn't take anything for it, but instead laid down with a warm compress and tried to sleep. The seizures started later that evening. Patient works at the [employer] and denies any recent head trauma, concussion, or other traumatic-type contributory event that could have precipitated this event. Patient denies any other recreational drug use, denies tobacco/vape use, and endorses only occasional alcohol use. Patient denies any known family Hx of seizures or brain aneurysms. Principal Diagnosis Seizure disorder Discharge Exam GA: well groomed, well nourished in no apparent distress. AAOx3 HEENT: head normocephalic, atraumatic. EOMI. nares patent. laceration on right side of tongue. RESP: vesicular breath sounds b/l. No wheezes, rhonchi, or rales CARDIOVASCULAR: S1 and S2 heard. No murmurs, rubs, or gallops. Radial pulses 2+ b/l RRR GI: Normoactive bowel sounds, no tenderness or masses felt to palpation MSK: no gross abnormalities or focal deficits SKIN: warm, dry, no edema PSYCH: appropriate mood and affect NEURO: no focal deficits. speech fluent Discharge Data Allergies Allergy/AdvReac Type Severity Reaction Status Date / Time shellfish derived Allergy Intermediate HIVES/HEADA Verified 01/24/25 00:29 MARGUERITE Consultations 01/24/25 00:59 ED Decision to Admit Stat 01/24/25 01:58 Consult Neurology Routine Ordered Studies 01/23/25 23:43 CT head/brain wo con Stat 01/24/25 05:22 MRI Brain [MR brain wo con] Urgent Hospital Course (1) Seizure-like activity: (2) Seizure: (3) Headache: Plan #Seizure Disorder - CT and MRI-Head: Normal, no findings; Normal EKG - EEG evident of seizures - prior pos marijuana (THC) screen (THC [employer], 576, H), no Med Marijuana card, uses his 's dispensary-obtained marijuana - denies other recreational drug use - continue Keppra, 500 mg, PO, BID - follow up with PCP and Neurology as outpatient Total Time Total Time Spent Total Time Spent (In Minutes): please see attending attestation Discharge Plan Discharge Items Patient Disposition: Home - Self-Care Reason For Visit: Seizures Discharge Diagnosis: Seizure Disorder Condition on Discharge: Fair Activity: Resume your previous activity Non-emergency contact: Primary Care Provider and Neurologist Call non-emergency contact if: you have any medication questions, your symptoms worsen and you have a fever Follow-up/Referrals: Ace Marshall MD [Physician] - PCP,NO [Primary Care Provider] - Diet: Regular Addtl Attending Provider Instructions: You were admitted to the hospital for seizure-like activity. You were treated with an antiseizure medication. Your brain imaging was negative for any worrisome pathology like stroke. We consulted Neurology who evaluated you and performed a test called an EEG which confirmed you had a seizure. They recommend you take an anti-seizure medication daily. Your evaluation remained stable and you were deemed safe for discharge. Medications Your medication list has been reviewed and reconciled. An updated list is included with your discharge paperwork; please review this list closely and make note of any changes. We sent a prescription for Keppra (levetiracetam) to your pharmacy. Take le vetiracetam [500]mg [twice daily]. Take your medications as instructed; do not skip a dose. Make sure all of your doctors know every medicine you are taking (including [id number] medicines, vitamins, and supplements). Call your PCP before taking any new medicines because some of these may interact with your current medications, or may make your symptoms worse. Follow-up appointments: Make a follow-up appointment with your PCP within the next week. It is very important that you follow up with them shortly after discharge from the [facility]. Please follow-up and establish care with a Neurologist as an outpatient for routine management of this condition. If not contacted by them, please call this number, , to let them know you were in the hospital and schedule an appointment. Keep all your follow-up appointments as already scheduled. If you cannot make an appointment, notify your provider. Please bring a copy of this discharge summary with you to your next office appointment so that your provider can review it at that time and stay updated on your hospitalization and potential changes in your care. Contact your PCP if your symptoms return or worsen. Call 911 or go to the ER if you experience any of the following: Sudden, severe abdominal pain or nausea/vomiting Severe chest pain, or chest pain that radiates (moves) to your jaw or arm Sudden, severe shortness of breath or difficulty breathing Thank you for allowing us to participate in your care. Pending Studies at Discharge: No Stand-Alone Forms: [facility] [place], Work/School Release, Smoking Cessation Medications and DC Order Prescriptions: New levetiracetam [Keppra] 500 mg Tablet 500 mg PO Q12H 30 Days Qty: 60 0RF Discharge Orders: Discharge Order (Routine); Ordered 01/24/25 Ordered By: Michael Skelton Admission Data Admit Date/Time: 01/24/25 02:26 Attending Provider: Michael Sharma Admit Provider: Bruce Najera Primary Care Provider: PCP,NO Other Providers: Bruce Najera; Ace Marshall Supervising Physician Co-Signing Physician Notes Attending attestation Pt seen and examined in concert with Dr. Skelton. In agreement with the documented findings as noted in the resident documentation with any exceptions or additions as noted here. Resting comfortably in bed without recurrence of symptoms. Very accepting of medication after repeat episode and highly engaged with care. VS as noted. On examination, S1/S2 nl RRR no MCG. CTAB. Abd NT/ND BS+ve, CNII- XII grossly intact Seizure disorder - neuro consult - EEG and MRI completed as noted. Discharged on Keppra 500mg BID. Agree w/ follow up with PCP and neurology as noted. Else see resident documentation as noted. Total attending physician time spent with this patient's care on the day of discharge: 32 minutes. Resident Activity Tracking Resident Involvement: Resident Care Provided Care Provided: Adult Hospital Medicine
--- NOTE | 2025-01-24 17:58 | Neurology Consultation ---
Date of Consultation January 24, 2025 History of Present Illness Reason for Consultation: Seizure Attending Physician: Michael Sharma MD History of Present Illness [facility] was seen in neurological consultation. I did review his case and discussed his EEG findings with the attending hospitalist physician and have recommended that he continue with Keppra 500 mg twice daily. We will see him for follow-up as an outpatient in neurology clinic. 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 Beliefs That Will Affect Care: None marital status: Single Current Living Situation: Spouse current occupational status: employed Feels Safe at Home: Yes Assistive Devices: None Results & Data Vital Signs (Past 12 Hours) Vital Signs Temp Pulse Pulse Resp BP BP Pulse Ox 01/24/25 17:06 36.6 C 50 L 16 131/73 97 01/24/25 13:00 50 L 16 131/73 97 01/24/25 08:40 54 L 14 132/82 99 01/24/25 06:00 57 L 23 126/85 93 O2 Del Method 01/24/25 17:06 01/24/25 13:00 Room Air 01/24/25 08:40 Room Air 01/24/25 06:00 Room Air PG Care Time/CCT Total # of Minutes Spent Total Time Spent with Patient: Total time spent is greater than 50% in coordination of care (as documented) at patient's floor/unit and/or counseling patient: Coding Level of Care Code None
--- NOTE | 2025-01-25 04:50 | Billing Data ---
Date of Service January 25, 2025 Coding Level of Care Code 24348 INT INP/OBS CARE
== END 2025-01-24 18:09 | disposition home or self-care (01) ==
LOC: ED 23:35 → INTOOBSV 01-24 02:26 → SUATTDRO 01-24 02:26 → EDINP 01-24 02:26 → 2N 01-24 15:17